=== PATIENT | male | born 1945 | race Caucasian/White ===

== ENCOUNTER 2017-07-15 16:51 | Inpatient (IN) | payer MEDICARE, OTHER ==
[~2017-07-15 16:51] MED LIST: Iopamidol 370 76% 100 ML VIAL ONE
--- NOTE | 2017-07-15 17:35 | RAD ---
1 VIEW CHEST: Date: 07/15/17 HISTORY: Dyspnea. COMPARISON: None. FINDINGS: Portable upright chest demonstrates cardiomegaly. Pulmonary vessels are prominent. Bibasilar pleural and parenchymal changes are noted. No pneumothorax. IMPRESSION: Congestive heart failure. POS: [facility]
[2017-07-15 17:39] LABS: #Basophils 0.2 thou/uL (0.0-0.2); #Eosinphils 0.3 thou/uL (0.0-0.7); #Lymphocytes 1.2 thou/uL (1.20-3.40); #Monocytes 0.9 thou/uL (0.11-0.59); #Neutrophils 5.5 thou/uL (1.40-6.50); %Basophils 1.9 % (0.0-1.0); %Eosinophils 3.6 % (0.0-10.0); %Lymphocytes 14.7 % (21.0-51.0); %Monocytes 11.3 % (0.0-10.0); Hematocrit 40.7 % (42.0-52.0); Mean Platelet Volume 6.4 fL (7.4-10.4); Red Blood Cell (RBC) Count 4.25 mill/uL (4.70-6.10); White Blood Cell (WBC) Count 8.1 thou/uL (4.8-10.8)
[2017-07-15 17:48] LABS: PTT 40.5 SEC (22.9-36.1)
[2017-07-15 17:58] LABS: ALT (SGPT) 17 U/L (8-55); AST (SGOT) 25 U/L (5-34); Alkaline Phosphatase 138 U/L (40-150); Anion Gap 16 mmol/L (10-20); BUN (Urea Nitrogen) 23 mg/dL (8.4-25.7); Bilirubin, Total 0.9 mg/dL (0.2-1.2); CK (CPK) 59 U/L (30-200); Calc. Creatinine Clearance 0 mL/min (70-130); Calcium 9.5 mg/dL (7.8-10.44); Carbon Dioxide 28 mmol/L (23-31); Chloride 91 mmol/L (98-107); Estimated GFR-MDRD 78; Globulin 3.1 g/dL (2.4-3.5); Lipase 37 U/L (8-78); Protein, Total 6.8 g/dL (5.8-8.1)
[2017-07-15 17:59] LABS: Troponin I 0.011 ng/mL (< 0.028)
[2017-07-15] MEDS ORDERED: Furosemide 40 MG/4 ML VIAL ONE (18:21)
[2017-07-15 18:46] LABS: Lactic Acid - Sepsis 0.7 mmol/L (0.5-2.2)
[2017-07-15] MEDS ORDERED: cefTRIAXone\\ROCEPHIN 2 GM VIAL ONE (19:19)
[2017-07-15] MEDS ORDERED: Sodium Chloride 0.9% 100 ML ONE (19:20)
[2017-07-15] MEDS ORDERED: Azithromycin 500 MG VIAL ONE (20:00)
--- NOTE | 2017-07-15 21:15 | CT ---
EXAM: CT ANGIOGRAM OF THE CHEST 07/15/17 HISTORY: Pain. Swelling. Right leg pain and swelling. Shortness of breath. COMPARISON: None. TECHNIQUE: CT angiogram of the chest is performed in the axial plane. Bilateral oblique and coronal three dimen sional reformatted images are submitted for interpretation. FINDINGS: There are mildly enlarged mediastinal lymph nodes. Cloth Beamer enlarged mediastinal lymph node in the right paratracheal region measures 1.4 x 1.4 cm. Additional enlarged prevascular lymph node robyn suring 1.4 x 0.9 cm is noted. Heart size is within the upper limits of normal. Heart is enlarged. No significant pericardial effusion. There is a moderate right and a small left pleural effusion. Ther e is focal consolidation with air bronchograms in the right upper lobe. Additional linear and ground glass opacities in the right upper lobe are present. Minimal linear opacities in the middle lobe. A telectatic changes in the right lower lobe are noted. Additional atelectatic changes in the left low er lobe are present. Trachea and central bronchi are patent. No evidence of pneumothorax. Adequate contrast opacification of the pulmonary arterial system to the level of the segmental arteries. No filling defect to suggest thromboembolism. The visualized aorta has a normal caliber. Visualized upper solid organs are unremarkable. There is irregularity involving the distal thoracic spine, incompletely evaluated. Correlation made with the lateral financial aid advisor tomograph suggests possible compression fracture, age indeterminate. Dedicate d thoracic spine radiograph can be performed. There are multiple old right rib fractures. IMPRESSION: 1. No evidence of pulmonary artery embolism to the level of the segmental arteries. 2. Lung parenchymal changes as detailed above. 3. Nonspecific mediastinal lymphadenopathy. 4. Right greater than left pleural effusions. 5. Old right rib fractures. 6. Indeterminate fracture involving the distal thoracic spine, incompletely evaluated. POS: [facility]
--- NOTE | 2017-07-15 21:37 | PDOC.EVN ---
Event Note - Event Note Event Note: [id number] h&p dictated 1. Hyperkalemia 2. Cellulitis 3. Acute CHF 4. H/O seizures 5. chronic anticoagulation plan; see orders
--- NOTE | 2017-07-15 21:58 | ULT ---
BILATERAL LOWER EXTREMITY VENOUS ULTRASOUND WITH DOPPLER: 07/15/17 HISTORY: Dyspnea. COMPARISON: None. TECHNIQUE: Garcia scale, color flow, doppler imaging with spectral waveform analysis performed in the left and ri ght lower extremity venous system. FINDINGS: Bilaterally, there is compressibility, presence of flow and augmentation in the common femoral vein, femoral vein, and popliteal veins. There is flow in bilateral greater saphenous veins, profunda vei ns and posterior tibial veins. There is right lower extremity and to a lesser extent left lower extremity edema. IMPRESSION: 1. No evidence of thrombus in the left or right lower extremity deep venous system. 2. Bilateral lower extremity edema. POS: [facility]
[2017-07-15] MEDS ORDERED: levETIRAcetam 500 MG TAB PO SCH (23:00)
[2017-07-15 23:22] LABS: Troponin I 0.021 ng/mL (< 0.028)
--- NOTE | 2017-07-16 01:53 | HP ---
DATE OF ADMISSION: 07/15/2017 CHIEF COMPLAINT: Right leg swelling and erythema. HISTORY OF PRESENT ILLNESS: The patient is a 71-year-old male with past medical history of atrial f ibrillation, seizures, chronic venous stasis; initially came to the outside hospital for right lower extremity swelling and erythema. Patient has chronic bilateral lower extremity swelling, but more pronounced on the right lower extremity now, associated with the erythema also and pain. Patient's swelling persisted. Denies any fever, denies any chills. The pain is a sharp kind of pain to burni ng kind of pain mainly in the right leg. Denies any cough, denies sputum production. Denies any di zziness, denies any palpations. Symptoms persisted, so he went to the ER. In the outside ER, katelynn ebnton was suspected of having acute CHF exacerbations. Patient was transferred here for further evalua tion. The patient complains of some dyspnea. Dyspnea is present for the past several years. Denie s any worsening dyspnea. Complains of some dry cough. Denies any diarrhea. PAST MEDICAL HISTORY: As per HPI. PAST SURGICAL HISTORY: Tonsillectomy, vein ablation, bilateral ankle surgery. SOCIAL HISTORY: Denies smoking. Occasional alcohol. Denies any drugs. FAMILY HISTORY: Positive for heart problems. REVIEW OF SYSTEMS: Constitutional: Denies any fever, denies any chills. Eyes: Denies any vision problems. Ears: Denies any hearing loss. Neck: Denies any neck pain. Cardiovascular System: De nies any chest pain, denies palpitations. Respiratory System: Positive for dyspnea. Cranial Nervo us System: Denies syncope, denies lightheadedness. Gastrointestinal: Denies abdominal pain, denie s any nausea, vomiting. Musculoskeletal: Bilateral lower extremity swelling, more pronounced on th e right leg. Integumentary: Positive for right leg erythema. Psychiatric: Denies depression or a nxiety. All other review of systems are reviewed and are negative. PHYSICAL EXAMINATION: CONSTITUTIONAL/VITAL SIGNS: At the time of H\T\P performed, afebrile, blood pressure is stable, res piratory rate is 18 and pulse ox 95%. GENERAL: The patient appears comfortable. HEENT: Anterior nares patent. Hearing is normal. Teeth intact. Tongue is moist. NECK: Supple. No JVD. CARDIOVASCULAR: S1 and S2 present. Regular rate and rhythm. No murmurs, no rubs, no gallops. RESPIRATORY System: Diminished breath sounds present. Occasional crackles. No wheezing, no rhonch i. MUSCULOSKELETAL: Bilateral lower extremity edema present. Chronic skin changes present. Right ank le decreased range of motion. INTEGUMENTARY: Right lower extremity positive for erythema, warm to touch, chronic stasis seen. Le ft leg positive for dressing. PSYCHIATRIC: Mood is appropriate at this time. CRANIAL NERVOUS SYSTEM: Awake and follows commands. Speech is intact. LABORATORY DATA: At the time of H\T\P performed, white count 8.1, hemoglobin 13.8, platelet count i s 154. PT 17, INR 1.4. White count showed sodium of 129, potassium 5.7, chloride 91, CO2 of 28, BU N 23, creatinine 0.95, BNP 666, troponin 0.011. ASSESSMENT AND PLAN: The patient is a 71-year-old male. 1. Right lower extremity cellulitis. Plan to start patient on IV clindamycin and Levaquin. We vi l monitor the patient closely. We will consult Wound Care to evaluate the patient. 2. Hyperkalemia. Monitor and treat potassium medically. Repeat BMP in a.m. 3. History of atrial fibrillation. Continue home medications. We will monitor heart rate closely. We will place patient on telemetry. 4. Acute congestive heart failure exacerbation, might be some component of chronic with some diasto lic heart failure. We will go ahead and check 2D echo. We will consult Cardiology to evaluate the patient. We will start patient on IV diuretics also. We will monitor serial cardiac enzymes. 5. History of chronic anticoagulation. Continue Xarelto. Ultrasound was pending at this time. We will wait for report to rule out any deep venous thrombosis in the lower extremities. 6. History of seizures. Continue Keppra. Case was discussed in detail with the patient and patient's also.
[2017-07-16 05:41] LABS: #Eosinphils 0.3 thou/uL (0.0-0.7); #Lymphocytes 1.2 thou/uL (1.20-3.40); #Monocytes 0.9 thou/uL (0.11-0.59); #Neutrophils 4.1 thou/uL (1.40-6.50); %Basophils 0.6 % (0.0-1.0); %Eosinophils 5.3 % (0.0-10.0); %Lymphocytes 18.3 % (21.0-51.0); %Monocytes 13.5 % (0.0-10.0); Hematocrit 41.8 % (42.0-52.0); Mean Platelet Volume 7.2 fL (7.4-10.4); Red Blood Cell (RBC) Count 4.01 mill/uL (4.70-6.10); White Blood Cell (WBC) Count 6.5 thou/uL (4.8-10.8)
[2017-07-16 05:50] LABS: Anion Gap 12 mmol/L (10-20); BUN (Urea Nitrogen) 23 mg/dL (8.4-25.7); Calc. Creatinine Clearance 100 mL/min (70-130); Calcium 8.9 mg/dL (7.8-10.44); Carbon Dioxide 25 mmol/L (23-31); Chloride 95 mmol/L (98-107); Estimated GFR-MDRD 74
[2017-07-16] MEDS ORDERED: Clindamycin/D5W 600 MG in Premix Bag 1 BAG IVPB SCH (06:00)
[2017-07-16] MEDS ORDERED: Furosemide 40 MG/4 ML VIAL SLOW IVP SCH (06:00)
[2017-07-16 06:10] LABS: Troponin I 0.021 ng/mL (< 0.028)
[2017-07-16] MEDS ORDERED: Spironolactone 25 MG TAB PO SCH (08:00)
[2017-07-16] MEDS ORDERED: Hydrochlorothiazide 25 MG TAB PO SCH (09:00)
[2017-07-16] MEDS ORDERED: Aspirin 81 mg Enteric Coated Tablet PO SCH (09:00)
[2017-07-16] MEDS: Allopurinol 300 MG TAB PO SCH (09:51)
[2017-07-16] MEDS: levETIRAcetam 500 MG TAB PO SCH ×2 (09:52→21:50)
[2017-07-16] MEDS: Folic Acid 1 MG TAB PO SCH ×2 (09:52→21:51)
[2017-07-16] MEDS: Atorvastatin Calcium 10 MG TAB PO SCH (09:54)
[2017-07-16] MEDS ORDERED: Ondansetron HCl/PF 4 MG/2 ML Vial IVP PRN (12:48)
[2017-07-16] MEDS ORDERED: Senokot 8.6 MG TAB PO PRN (12:48)
[2017-07-16] MEDS ORDERED: Acetaminophen 325 MG TAB PO PRN (12:48)
[2017-07-16] MEDS ORDERED: Ondansetron ODT 4 MG TAB PO PRN (12:48)
[2017-07-16] MEDS ORDERED: Nitroglycerin 0.4 MG TAB (25 Tab Bottle) PO PRN (12:48)
[2017-07-16] MEDS ORDERED: Calcium Carbonate 500 MG ChewTAB PO PRN (12:48)
[2017-07-16] MEDS ORDERED: [UNRECOGNIZED DRUG - REMARK] IVPB PRN (12:51)
[2017-07-16] MEDS ORDERED: Polyethylene Glycol 3350 17 GM Packet PO PRN (12:51)
[2017-07-16] MEDS ORDERED: Diabetic Tussin 200 MG/10 ML UDCUP PO PRN (12:51)
[2017-07-16] MEDS ORDERED: Eucerin (Mineral Oil/Petrolatum,White) 30 gm Jar TOP PRN (12:51)
[2017-07-16] MEDS ORDERED: Vancomycin HCl 1 GM in Premix Bag 1 BAG IVPB SCH (13:00)
[2017-07-16] MEDS ORDERED: Furosemide 20 MG/2 ML VIAL SLOW IVP SCH (13:00)
--- NOTE | 2017-07-16 13:05 | PRG ---
DATE OF SERVICE: 07/16/2017 PRIMARY CARE PHYSICIAN: Dr. Mosley. SUMMARY: A 71-year-old male with chronic venous stasis, hypertension, and chronic atrial fibrillation on anticoagulation who presented to the hospital last night from the Urgent Care with bilateral lower extremity swelling. His workup was consistent with cellulitis with congestive heart failure and pneumonia. He was hypoxic with 84% on room air. SUBJECTIVE: His symptoms have improved. He was seen by Wound Care today. He is tolerating current antibiotics. He denies any chest pain, palpitations or syncope. REVIEW OF SYSTEMS: No nausea, vomiting, diarrhea. No focal neurologic deficit. No cough or hemoptysis. IMAGING: Telemetry monitoring by my review showed atrial fibrillation with slow ventricular rate. CURRENT MEDICATIONS: Reviewed. HOME MEDICATIONS: Reviewed PHYSICAL EXAMINATION: VITAL SIGNS: Temperature 98.9, pulse rate of 55, respiration 22, O2 saturation 89% on 2 liters, blood pressure of 142/65. GENERAL: A 71-year-old male in no significant respiratory distress. LUNGS: Showed bibasilar crackles with scattered rhonchi. Lungs were symmetrical. No significant wheezing noted. HEART: S1, S2 present. Irregularly irregular. A 2/6 systolic murmur over the mitral area. No rubs or gallops. ABDOMEN: Soft, nontender, bowel sounds present, no rebound or guarding. No costovertebral angle tenderness. EXTREMITIES: Right lower extremity more swollen than the left. Marco wraps were noted. NEUROLOGIC: Grossly nonfocal, moves all four extremities, normal tone and power. PSYCHIATRIC: Alert, awake, oriented x3, normal affect. LABORATORY FINDINGS AND IMAGIN. Potassium on admission was 5.7, today is 5.2, sodium is 127 from 129. BNP is 666. 2. Hemoglobin 13.1 with normal platelet count. 3. Blood cultures have been negative. 4. CT angiogram of the chest by my review was negative for pulmonary embolism. There was nonspecific mediastinal lymphadenopathy with bilateral pleural effusion and suspected right upper lobe pneumonia. 5. Bilateral lower extremity Doppler was negative for deep venous thrombosis. 6. Chest x-ray by my review showed congestive heart failure findings. 7. EKG by my review showed atrial fibrillation with slow ventricular response. IMPRESSION: 1. Acute hypoxic respiratory failure secondary to congestive heart failure/ pneumonia. 2. Acute on chronic congestive heart failure, suspected diastolic. 3. Community-acquired pneumonia, suspected pneumococcal. 4. Bilateral lower extremity cellulitis, right more than left. 5. Hyperkalemia. 6. History of seizure disorder. 7. Chronic atrial fibrillation. The patient is currently in slow ventricular response. 8. Chronic bilateral lower extremity lymphedema. 9. Chronic venous insufficiency in bilateral lower extremities. 10. Hypertension. 11. Cardiac catheterization last year by Dr. Diaz. Report unavailable. 12. Hyperlipidemia. 13. Chronic kidney disease stage 2. 14. Obesity with a body mass index of 30.3. 15. Macrocytic anemia. 16. Chronic anticoagulation. PLAN: The patient will be monitored on the telemetry unit. Cardiology has been consulted. Echocardiogram will be done. We will add fluid restriction. Continue diuretics. We will discontinue clindamycin. Continue Levaquin with ceftriaxone. Repeat labs in a.m. Wound care is following. We will elevate bilateral lower extremity. Plan of care was discussed with the patient and the family at the bedside. They stated understanding. MTDD
[2017-07-16] MEDS: Furosemide 40 MG/4 ML VIAL SLOW IVP SCH (14:06)
[2017-07-16] MEDS: Vancomycin HCl 1.5 GM in Sodium Chloride 0.9% 250 ML 300 ML IVPB SCH (14:15)
[2017-07-16] MEDS: Rivaroxaban 10 MG TAB PO SCH (17:33)
--- NOTE | 2017-07-16 21:45 | CON ---
DATE OF CONSULTATION: 07/16/2017 REASON FOR CONSULTATION: Congestive heart failure. REFERRING PHYSICIAN: Kai Dowell MD HISTORY OF PRESENT ILLNESS: Mr. Dotson is a 71-year-old gentleman who presented with right leg a symmetric swelling and erythema. He has chronic edema bilaterally, but his edema became more asymme tric and isolated to the right lower extremity with erythema and warmth suspicious for cellulitis. He went to the ER for evaluation and workup showed evidence of volume overload. He was transferred here for further treatment. He has a history of atrial fibrillation and is chronically anticoagulated on Xarelto. He is followe d by Dr. Diaz with [facility]. PAST MEDICAL HISTORY: 1. Atrial fibrillation. 2. Chronic venous stasis. 3. Seizure disorder. 4. Hypertension. PAST SURGICAL HISTORY: 1. Tonsillectomy. 2. Vein ablation. 3. Bilateral ankle surgery. ALLERGIES: No known drug allergies. SOCIAL HISTORY: He denies tobacco use, ethanol abuse, illicit or recreational drug use. FAMILY HISTORY: Negative with respect to premature atherosclerosis. CURRENT MEDICATIONS: At home include: 1. Allopurinol 300 mg daily. 2. Amlodipine 2.5 mg daily. 3. Vitamin C 1000 mg daily. 4. Lipitor 10 mg daily. 5. Vitamin D daily. 6. Folic acid 1 mg b.i.d. 7. Hydrochlorothiazide 12.5 mg daily. 8. Xarelto 20 mg daily. 9. Aldactone 50 mg daily. 10. Levetiracetam 750 mg b.i.d. REVIEW OF SYSTEMS: As per the history of present illness. The remainder of 12-system review is neg ative. PHYSICAL EXAMINATION: VITAL SIGNS: Blood pressure 142/65, pulse 55 and regular, respiratory rate 22 and nonlabored, tempe rature 98.9, oxygen saturation 90% on 3 liters per minute per nasal cannula. GENERAL: This is a well-developed, overweight, 71-year-old gentleman, in no acute distres s. He is alert and oriented x4, answers questions appropriately. HEENT: Head is atraumatic, normocephalic. Pupils are equally round and reactive. Sclerae and conj unctivae are clear. There are no oral lesions. NECK: Supple. No JVD, thyromegaly, or carotid bruits. CHEST: Symmetrical inspiration and expiration HEART: Regular in rate and rhythm with a soft systolic murmur at the right upper sternal border wit hout radiation. PMI is nondisplaced, not enlarged. LUNGS: Diminished breath sounds noted in bases bilaterally. ABDOMEN: Soft, nontender, nondistended without mass or organomegaly. Bowel sounds are present in a ll four quadrants. No flank bruits auscultated. EXTREMITIES: 2+ pulses noted bilaterally. Upper and lower extremity strength is 5/5 bilaterally. T here is no clubbing or cyanosis. There is diffuse edema bilaterally. DATABASE: EKG revealed sinus rhythm with nonspecific ST changes. LABORATORY DATA: CBC reveals a white count of 6, H\T\H of 13 and 41, platelet count 171,000. Diffe rential white blood cells normal, red cell indices macrocytic with MCV of 104. Coagulation studies: PT is 17, INR 1.4, aPTT of 40.5. Chemistries: Sodium is 127, potassium 5.2, chloride 95, bicarbo isadora 25, BUN and creatinine are 23 and 0.9. GFR is estimated at 73. LFTs are within normal limits. Cardiac enzymes are normal. BNP elevated at 666. ASSESSMENT: 1. Acute on chronic diastolic congestive heart failure. 2. Hyponatremia secondary to acute on chronic diastolic congestive heart failure. 3. Chronic kidney disease, stage 2. 4. Paroxysmal atrial fibrillation, currently in sinus rhythm, on Xarelto. 5. Cellulitis, right lower extremity. RECOMMENDATIONS: 1. From a cardiac standpoint, he is stable. We will proceed with gentle diuresis, monitoring his e lectrolyte status and renal function over the course of time. 2. Agree with antibiotics for his presumed cellulitis due to chronic worsening edema. 3. An echo has been ordered and will be reviewed. I will follow along with you and appreciate the opportunity to participate in his care.
[2017-07-16] MEDS: Docusate 100 MG CAP PO SCH (21:50)
[2017-07-16] MEDS: Famotidine 20 MG TAB PO SCH (21:51)
[2017-07-17] MEDS: Vancomycin HCl 1.5 GM in Sodium Chloride 0.9% 250 ML 300 ML IVPB SCH (02:01)
[2017-07-17 05:33] LABS: #Basophils 0.1 thou/uL (0.0-0.2); #Eosinphils 0.5 thou/uL (0.0-0.7); #Lymphocytes 1.2 thou/uL (1.20-3.40); #Monocytes 0.8 thou/uL (0.11-0.59); #Neutrophils 4.1 thou/uL (1.40-6.50); %Basophils 1.2 % (0.0-1.0); %Eosinophils 7.8 % (0.0-10.0); %Lymphocytes 18.3 % (21.0-51.0); %Monocytes 11.8 % (0.0-10.0); Hematocrit 41.1 % (42.0-52.0); Mean Platelet Volume 6.2 fL (7.4-10.4); Red Blood Cell (RBC) Count 3.95 mill/uL (4.70-6.10); White Blood Cell (WBC) Count 6.7 thou/uL (4.8-10.8)
[2017-07-17] MEDS: Furosemide 40 MG/4 ML VIAL SLOW IVP SCH ×3 (05:39→17:28)
[2017-07-17 06:03] LABS: ALT (SGPT) 11 U/L (8-55); AST (SGOT) 17 U/L (5-34); Alkaline Phosphatase 109 U/L (40-150); Anion Gap 12 mmol/L (10-20); BUN (Urea Nitrogen) 24 mg/dL (8.4-25.7); Bilirubin, Total 0.7 mg/dL (0.2-1.2); Calc. Creatinine Clearance 85 mL/min (70-130); Calcium 8.9 mg/dL (7.8-10.44); Carbon Dioxide 29 mmol/L (23-31); Chloride 94 mmol/L (98-107); Estimated GFR-MDRD 61; Globulin 2.6 g/dL (2.4-3.5); Magnesium 1.2 mg/dL (1.6-2.6); Phosphorus 4.6 mg/dL (2.3-4.7); Protein, Total 5.7 g/dL (5.8-8.1); Uric Acid 4.2 mg/dL (3.5-7.2)
[2017-07-17] MEDS ORDERED: Magnesium Sulfate 4 GM, Admixture Fee 1 EACH in Sodium Chloride 0.9% 250 ML 250 ML IVPB SCH (06:30)
[2017-07-17] MEDS: levETIRAcetam 500 MG TAB PO SCH ×2 (09:59→21:53)
[2017-07-17] MEDS: Docusate 100 MG CAP PO SCH ×2 (10:00→21:53)
[2017-07-17] MEDS: Cyanocobalamin (Vitamin B-12) 1,000 MCG TAB PO SCH (10:00)
[2017-07-17] MEDS: Famotidine 20 MG TAB PO SCH ×2 (10:00→21:53)
[2017-07-17] MEDS: Multivit, Therapeutic 1 TAB PO SCH (10:00)
[2017-07-17] MEDS: Allopurinol 300 MG TAB PO SCH (10:01)
[2017-07-17] MEDS: Atorvastatin Calcium 10 MG TAB PO SCH (10:01)
[2017-07-17] MEDS: Folic Acid 1 MG TAB PO SCH ×2 (10:02→21:53)
[2017-07-17] MEDS ORDERED: Losartan Potassium 25 MG TAB PO SCH ×2 (10:30→21:00)
--- NOTE | 2017-07-17 11:02 | PDOC.PN ---
- Subjective Encounter Start Date: 07/17/17 Encounter Start Time: 10:30 Patient seen and examined. No new complaints. No overnight events. SOB improving - Objective Resuscitation Status: Resuscitation Status FULL:Full Resuscitation MAR Reviewed: Yes Vital Signs & Weight: Vital Signs (12 hours) Temp Pulse Resp BP BP BP Pulse Ox 07/17/17 08:00 97.6 F 51 L 22 H 174/81 H 182/81 H 175/79 H 92 L 07/17/17 04:48 92 L 07/17/17 04:05 98.8 F 49 L 18 160/71 H 92 L 07/16/17 23:35 52 L 18 127/55 L 92 L Weight Admit Weight 231 lb Weight 233 lb 1.6 oz I&O: 07/16/17 07/17/17 07/18/17 06:59 06:59 06:59 Intake Total 760 1390 Output Total 700 1800 Balance 60 -410 Result Diagrams: 07/17/17 05:23 07/17/17 05:23 EKG Reviewed by me: Yes (Tele Afib ) Phys Exam - Physical Examination Constitutional: NAD (on 4 lit O2) Respiratory: no wheezing, no rhonchi Bibasilar rales Cardiovascular: RRR, no rub Gastrointestinal: soft, non-tender, positive bowel sounds Musculoskeletal: edema present B/L LE dressing + Neurological: non-focal, moves all 4 limbs Psychiatric: A&O x 3 Dx/Plan - Plan IMPRESSION: 1. Acute hypoxic respiratory failure secondary to congestive heart failure/ pneumonia. improving 2. Acute on chronic diastolic heart failure. 3. Community-acquired pneumonia, suspected pneumococcal. 4. Bilateral lower extremity cellulitis, right more than left. 5. Hyperkalemia. resolved 6. History of seizure disorder. on Keppra 7. Chronic atrial fibrillation. 8. Chronic bilateral lower extremity lymphedema. 9. Chronic venous insufficiency in bilateral lower extremities. 10. Hypertension. uncontrolled 11. Cardiac catheterization last year by Dr. Diaz per patient report. 12. Hyperlipidemia. 13. Chronic kidney disease stage 2. 14. Obesity with a body mass index of 30.3. 15. Macrocytic anemia. 16. Chronic anticoagulation. 17. Gout. 18 Hypomagnessemia PLAN: * Change Atbx to Omnicef with Doxycycline * Cont diuretics * Replace Magnessium * AM labs * Cardiology following * Add Losartan and Hydralazine due to elevated BP * No betablockers due to bradycardia. Review of Systems - Review of Systems Constitutional: negative: Fever, Chills, Sweats, Weakness, Malaise, Other Respiratory: SOB with Excertion Cardiovascular: Edema. negative: Chest Pain, Palpitations, Orthopnea, Paroxysmal Noc. Dyspnea, Light Headedness, Other Gastrointestinal: negative: Nausea, Vomiting, Abdominal Pain, Diarrhea, Constipation, Melena, Hematochezia, Other - Medications/Allergies Allergies/Adverse Reactions: Allergies Allergy/AdvReac Type Severity Reaction Status Date / Time No Known Drug Allergies Allergy Verified 07/15/17 22:23 Medications: Current Medications Acetaminophen (Tylenol) 650 mg PO Q4H PRN PRN Reason: Headache/Fever or Pain Albuterol/Ipratropium (Duoneb) 3 ml NEB Q4H PRN PRN Reason: SOB &/or Wheezing Allopurinol (Zyloprim) 300 mg PO DAILY [facility] Last Admin: 07/17/17 10:01 Dose: 300 mg Atorvastatin Calcium (Lipitor) 10 mg PO DAILY [facility] Last Admin: 07/17/17 10:01 Dose: 10 mg Calcium Carbonate (Tums) 1,000 mg PO Q4H PRN PRN Reason: Heartburn or Indigestion Cefdinir (Omnicef) 300 mg PO BID [facility] Cyanocobalamin (Vitamin B-12) 1,000 mcg PO DAILY [facility] Last Admin: 07/17/17 10:00 Dose: 1,000 mcg Docusate Sodium (Colace) 100 mg PO BID [facility] Last Admin: 07/17/17 10:00 Dose: 100 mg Doxycycline Hyclate (Vibramycin) 100 mg PO BID [facility] Famotidine (Pepcid) 20 mg PO BID [facility] Last Admin: 07/17/17 10:00 Dose: 20 mg Folic Acid (Folvite) 1 mg PO BID [facility] Last Admin: 07/17/17 10:02 Dose: 1 mg Furosemide (Lasix) 40 mg SLOW IVP 0600,1400 [facility] Last Admin: 07/17/17 05:39 Dose: 40 mg Guaifenesin (Robitussin Sf) 200 mg PO Q4H PRN PRN Reason: Cough Hydralazine HCl (Apresoline) 10 mg SLOW IVP Q4H PRN PRN Reason: SBP Greater Than 180 Hydralazine HCl (Apresoline) 25 mg PO BID [facility] Hydralazine HCl (Apresoline) 25 mg PO 1030 [facility] Stop: 07/17/17 12:00 Levetiracetam (Keppra) 750 mg PO BID [facility] Last Admin: 07/17/17 09:59 Dose: 750 mg Losartan Potassium (Cozaar) 25 mg PO BID [facility] Losartan Potassium (Cozaar) 25 mg PO 1030 [facility] Stop: 07/17/17 12:00 Mineral Oil/White Petrolatum (Eucerin Cream) 0 gm TOP BIDPRN PRN PRN Reason: Dry Skin Miscellaneous Medication (Pharmacy To Dose) 1 each IVPB .DAILY PRN PRN Reason: LABS Multivitamins (Theragran) 1 tab PO DAILY [facility] Last Admin: 07/17/17 10:00 Dose: 1 tab Nitroglycerin (Nitrostat) 0.4 mg PO Q5MIN PRN PRN Reason: Chest Pain Ondansetron HCl (Zofran Odt) 4 mg PO Q6H PRN PRN Reason: Nausea/Vomiting Ondansetron HCl (Zofran) 4 mg IVP Q6H PRN PRN Reason: Nausea/Vomiting Polyethylene Glycol (Miralax) 17 gm PO DAILY PRN PRN Reason: Constipation Rivaroxaban (Xarelto) 20 mg PO 1700 [facility] Last Admin: 07/16/17 17:33 Dose: 20 mg Senna (Senokot) 2 tab PO HSPRN PRN PRN Reason: Constipation Sodium Chloride (Flush - Normal Saline) 10 ml IVF PRN PRN PRN Reason: Saline Flush Last Admin: 07/17/17 09:58 Dose: 10 ml Thiamine HCl (Thiamine) 100 mg PO DAILY [facility] Last Admin: 07/17/17 10:02 Dose: 100 mg
--- NOTE | 2017-07-17 12:17 | PDOC.CTH ---
Cardiology Progress Note - Subjective No new issues overnight. Breathing better today. Diuresing adequately. ROS otherwise negative. - Objective Vital Signs Temp Pulse Resp BP BP BP BP 07/17/17 11:51 48 L 162/73 H 07/17/17 08:00 97.6 F 51 L 22 H 174/81 H 182/81 H 175/79 H 07/17/17 04:48 07/17/17 04:05 98.8 F 49 L 18 160/71 H Pulse Ox 07/17/17 11:51 07/17/17 08:00 92 L 07/17/17 04:48 92 L 07/17/17 04:05 92 L Admit Weight 231 lb Weight 233 lb 1.6 oz 07/16/17 07/17/17 07/18/17 06:59 06:59 06:59 Intake Total 760 1390 Output Total 700 1800 Balance 60 -410 - Physical Examination General/Neuro: alert & oriented x3, NAD Neck: carotid US brisk, no JVD present Lungs: CTA, unlabored respirations Heart: PMI normal, RRR Abdomen: no HSM, NT/ND, soft Extremities: + edema B Other PE findings: Neuro: no focal motor defs - Telemetry Telemetry Rhythm: sinus rhythm - Labs Result Diagrams: 07/17/17 05:23 07/17/17 05:23 Troponin/CKMB CK-MB (CK-2) 4.1 ng/mL (0-6.6) 07/15/17 17:19 Troponin I 0.021 ng/mL (< 0.028) 07/16/17 05:15 - Assessment/Plan 1. CAP: improved. Continue antibiotics. 2. CHF: acute/chronic diastolic: stable with diuresis. Monitor lytes/renal function. Stable currently. 3. HTN: controlled. Continue medical management. 4. CKD, II: stable.
[2017-07-17] MEDS: Rivaroxaban 10 MG TAB PO SCH (17:28)
[2017-07-17] MEDS: Cefdinir 300 MG CAP PO SCH (21:53)
[2017-07-17] MEDS: Doxycycline 100 MG CAP PO SCH (21:53)
[2017-07-18 06:31] LABS: ALT (SGPT) 13 U/L (8-55); AST (SGOT) 21 U/L (5-34); Alkaline Phosphatase 110 U/L (40-150); Anion Gap 15 mmol/L (10-20); BUN (Urea Nitrogen) 29 mg/dL (8.4-25.7); Bilirubin, Total 0.6 mg/dL (0.2-1.2); Calc. Creatinine Clearance 75 mL/min (70-130); Calcium 9.1 mg/dL (7.8-10.44); Carbon Dioxide 28 mmol/L (23-31); Chloride 93 mmol/L (98-107); Estimated GFR-MDRD 52; Globulin 2.8 g/dL (2.4-3.5); Magnesium 1.9 mg/dL (1.6-2.6); Phosphorus 5.5 mg/dL (2.3-4.7); Protein, Total 5.9 g/dL (5.8-8.1)
[2017-07-18 06:42] LABS: Hematocrit 41.7 % (42.0-52.0); Macrocytosis SLIGHT = 6-15 cells (100X) (0-5/hpf); Mean Platelet Volume 6.4 fL (7.4-10.4); Neutrophil 61 % (42-75); Red Blood Cell (RBC) Count 3.96 mill/uL (4.70-6.10); White Blood Cell (WBC) Count 7.9 thou/uL (4.8-10.8)
[2017-07-18] MEDS: Furosemide 40 MG/4 ML VIAL SLOW IVP SCH (06:58)
[2017-07-18] MEDS: Cefdinir 300 MG CAP PO SCH ×2 (08:51→21:02)
[2017-07-18] MEDS: Atorvastatin Calcium 10 MG TAB PO SCH (08:51)
[2017-07-18] MEDS: Cyanocobalamin (Vitamin B-12) 1,000 MCG TAB PO SCH (08:51)
[2017-07-18] MEDS: Folic Acid 1 MG TAB PO SCH ×2 (08:52→21:02)
[2017-07-18] MEDS: Docusate 100 MG CAP PO SCH ×2 (08:52→21:02)
[2017-07-18] MEDS: Doxycycline 100 MG CAP PO SCH ×2 (08:52→21:02)
[2017-07-18] MEDS: Famotidine 20 MG TAB PO SCH ×2 (08:52→21:02)
[2017-07-18] MEDS: Multivit, Therapeutic 1 TAB PO SCH (08:52)
[2017-07-18] MEDS: levETIRAcetam 500 MG TAB PO SCH ×2 (08:52→21:02)
[2017-07-18] MEDS: Allopurinol 100 MG TAB PO SCH (08:57)
[2017-07-18] MEDS ORDERED: Losartan Potassium 25 MG TAB PO SCH (09:00)
[2017-07-18] MEDS: Rivaroxaban 10 MG TAB PO SCH (16:58)
--- NOTE | 2017-07-18 18:23 | PDOC.PN ---
- Subjective Encounter Start Date: 07/18/17 Encounter Start Time: 09:00 Patient seen and examined. No new complaints. No overnight events. SOB improving. - Objective Resuscitation Status: Resuscitation Status FULL:Full Resuscitation MAR Reviewed: Yes Vital Signs & Weight: Vital Signs (12 hours) Temp Pulse Pulse Pulse Resp BP BP 07/18/17 15:09 98.3 F 53 L 18 07/18/17 12:00 99.1 F 56 L 18 07/18/17 10:19 54 L 52 L 163/71 H 187/79 H 07/18/17 08:00 98.8 F 63 20 BP BP Pulse Ox Pulse Ox Pulse Ox 07/18/17 15:09 158/69 H 94 L 07/18/17 12:00 145/67 H 100 07/18/17 10:19 94 L 94 L 07/18/17 08:00 124/84 93 L Weight Admit Weight 231 lb Weight 235 lb 11.2 oz I&O: 07/17/17 07/18/17 07/19/17 06:59 06:59 06:59 Intake Total 1390 1480 Output Total 1800 2325 Balance -410 -845 Result Diagrams: 07/18/17 05:12 07/18/17 05:12 EKG Reviewed by me: Yes (Tele Afib) Phys Exam - Physical Examination Constitutional: NAD Respiratory: no wheezing, no rhonchi bibasilar rales Cardiovascular: no rub, irregular Gastrointestinal: soft, non-tender, positive bowel sounds Musculoskeletal: edema present Neurological: non-focal, moves all 4 limbs Dx/Plan - Plan IMPRESSION: 1. Acute hypoxic respiratory failure secondary to congestive heart failure/ pneumonia. improving 2. Acute on chronic diastolic heart failure. improving 3. Community-acquired pneumonia, suspected pneumococcal. on Atbx 4. Bilateral lower extremity cellulitis, right more than left. wound care following. 5. Chronic anticoagulation. 6. History of seizure disorder. on Keppra 7. Chronic atrial fibrillation. Bradycardic 8. Chronic bilateral lower extremity lymphedema. 9. Chronic venous insufficiency in bilateral lower extremities. 10. Hypertension. uncontrolled 11. Cardiac catheterization last year by Dr. Diaz per patient report. 12. Hyperlipidemia. 13. Chronic kidney disease stage 2. 14. Obesity with a body mass index of 30.3. 15. Macrocytic anemia. 16. Hyperkalemia. resolved 17. Gout. 18 Hypomagnessemia PLAN: * Cont Omnicef & Doxycycline * Change Lasix to PO due to elevated Cr * Cont wound care * AM labs * Cardiology following * Hold Losartan due to elevated Cr * No betablockers due to bradycardia. * CXR in AM - still on 4 lit O2 NC * Add IS Review of Systems - Review of Systems Constitutional: negative: Fever, Chills, Sweats, Weakness, Malaise, Other Respiratory: SOB with Excertion. negative: Cough, Dry, Shortness of Breath, Hemoptysis, Pleuritic Pain, Sputum, Wheezing Cardiovascular: negative: Chest Pain, Palpitations, Orthopnea, Paroxysmal Noc. Dyspnea, Edema, Light Headedness, Other Gastrointestinal: negative: Nausea, Vomiting, Abdominal Pain, Diarrhea, Constipation, Melena, Hematochezia, Other - Medications/Allergies Allergies/Adverse Reactions: Allergies Allergy/AdvReac Type Severity Reaction Status Date / Time No Known Drug Allergies Allergy Verified 07/15/17 22:23 Medications: Current Medications Acetaminophen (Tylenol) 650 mg PO Q4H PRN PRN Reason: Headache/Fever or Pain Albuterol/Ipratropium (Duoneb) 3 ml NEB Q4H PRN PRN Reason: SOB &/or Wheezing Allopurinol (Zyloprim) 100 mg PO DAILY [facility] Last Admin: 07/18/17 08:57 Dose: 100 mg Atorvastatin Calcium (Lipitor) 10 mg PO DAILY [facility] Last Admin: 07/18/17 08:51 Dose: 10 mg Calcium Carbonate (Tums) 1,000 mg PO Q4H PRN PRN Reason: Heartburn or Indigestion Cefdinir (Omnicef) 300 mg PO BID [facility] Last Admin: 07/18/17 08:51 Dose: 300 mg Docusate Sodium (Colace) 100 mg PO BID [facility] Last Admin: 07/18/17 08:52 Dose: 100 mg Doxycycline Hyclate (Vibramycin) 100 mg PO BID [facility] Last Admin: 07/18/17 08:52 Dose: 100 mg Famotidine (Pepcid) 20 mg PO BID [facility] Last Admin: 07/18/17 08:52 Dose: 20 mg Folic Acid (Folvite) 1 mg PO BID [facility] Last Admin: 07/18/17 08:52 Dose: 1 mg Furosemide (Lasix) 40 mg PO DAILY[facility] Guaifenesin (Robitussin Sf) 200 mg PO Q4H PRN PRN Reason: Cough Hydralazine HCl (Apresoline) 10 mg SLOW IVP Q4H PRN PRN Reason: SBP Greater Than 180 Levetiracetam (Keppra) 750 mg PO BID [facility] Last Admin: 07/18/17 08:52 Dose: 750 mg Mineral Oil/White Petrolatum (Eucerin Cream) 0 gm TOP BIDPRN PRN PRN Reason: Dry Skin Miscellaneous Medication (Pharmacy To Dose) 1 each IVPB .DAILY PRN PRN Reason: LABS Multivitamins (Theragran) 1 tab PO DAILY [facility] Last Admin: 07/18/17 08:52 Dose: 1 tab Nitroglycerin (Nitrostat) 0.4 mg PO Q5MIN PRN PRN Reason: Chest Pain Ondansetron HCl (Zofran Odt) 4 mg PO Q6H PRN PRN Reason: Nausea/Vomiting Ondansetron HCl (Zofran) 4 mg IVP Q6H PRN PRN Reason: Nausea/Vomiting Polyethylene Glycol (Miralax) 17 gm PO DAILY PRN PRN Reason: Constipation Rivaroxaban (Xarelto) 20 mg PO 1700 [facility] Last Admin: 07/18/17 16:58 Dose: 20 mg Senna (Senokot) 2 tab PO HSPRN PRN PRN Reason: Constipation Sodium Chloride (Flush - Normal Saline) 10 ml IVF PRN PRN PRN Reason: Saline Flush Last Admin: 07/17/17 17:30 Dose: 10 ml Thiamine HCl (Thiamine) 100 mg PO DAILY [facility] Last Admin: 07/18/17 08:53 Dose: 100 mg
[2017-07-19 06:18] LABS: #Basophils 0.1 thou/uL (0.0-0.2); #Eosinphils 0.5 thou/uL (0.0-0.7); #Lymphocytes 1.1 thou/uL (1.20-3.40); #Monocytes 0.9 thou/uL (0.11-0.59); #Neutrophils 4.9 thou/uL (1.40-6.50); %Basophils 0.9 % (0.0-1.0); %Eosinophils 6.5 % (0.0-10.0); %Lymphocytes 14.6 % (21.0-51.0); %Monocytes 11.9 % (0.0-10.0); Hematocrit 40.3 % (42.0-52.0); Mean Platelet Volume 6.7 fL (7.4-10.4); Red Blood Cell (RBC) Count 3.86 mill/uL (4.70-6.10); White Blood Cell (WBC) Count 7.3 thou/uL (4.8-10.8)
[2017-07-19 06:39] LABS: Anion Gap 14 mmol/L (10-20); BUN (Urea Nitrogen) 35 mg/dL (8.4-25.7); Calc. Creatinine Clearance 72 mL/min (70-130); Calcium 8.9 mg/dL (7.8-10.44); Carbon Dioxide 28 mmol/L (23-31); Chloride 93 mmol/L (98-107); Estimated GFR-MDRD 50; Magnesium 1.6 mg/dL (1.6-2.6)
--- NOTE | 2017-07-19 08:46 | RAD ---
PA AND LATERAL CHEST: Date: 07-19-17 History: Shortness of breath, hypoxia. Comparison: CTA chest 03-14-17. FINDINGS: Pleural and parenchymal changes are seen in at the right lung base again related to moderate sized r ight pleural effusion and atelectasis. There are increased parenchymal opacities seen in the right u pper lobe, also seen on the prior CTA exam. Findings could be related to areas of scarring or inters titial infiltrate secondary to infectious process. There is increased density seen at the left lung base, some of which is related to overlying soft tissue density, but there are areas of subsegmental atelectasis. The heart is enlarged. Pulmonary vasculature is within normal limits. There is osteopenia with remote right sided rib fractures seen and prominent left acromioclavicular joint osteoarthritis. IMPRESSION: 1. Moderate sized right pleural effusion and atelectasis. 2. Interstitial and patchy densities in the region of the right upper lobe anteriorly which may be r elated to either atelectasis or infectious process. 3. Cardiomegaly. 4. Remote right sided rib fractures. POS: NAVYA
[2017-07-19] MEDS: levETIRAcetam 500 MG TAB PO SCH ×2 (08:56→22:22)
[2017-07-19] MEDS: Doxycycline 100 MG CAP PO SCH ×2 (08:57→22:21)
[2017-07-19] MEDS: Famotidine 20 MG TAB PO SCH ×2 (08:57→22:22)
[2017-07-19] MEDS: Folic Acid 1 MG TAB PO SCH ×2 (08:57→22:21)
[2017-07-19] MEDS: Atorvastatin Calcium 10 MG TAB PO SCH (08:58)
[2017-07-19] MEDS: Furosemide 40 MG TAB PO SCH (08:58)
[2017-07-19] MEDS: Allopurinol 100 MG TAB PO SCH (08:58)
[2017-07-19] MEDS: Docusate 100 MG CAP PO SCH ×2 (08:58→22:23)
[2017-07-19] MEDS: Multivit, Therapeutic 1 TAB PO SCH (08:58)
[2017-07-19] MEDS: Cefdinir 300 MG CAP PO SCH ×2 (08:58→22:21)
--- NOTE | 2017-07-19 10:49 | PDOC.CTH ---
Cardiology Progress Note - Subjective Feeling better. Denies recurrent dyspnea, orthopnea. Tolerating meds. ROS otherwise negative. - Objective Vital Signs Temp Pulse Resp BP Pulse Ox 07/19/17 08:20 98.9 F 65 16 190/80 H 92 L 07/19/17 08:00 98.9 F 65 16 92 L 07/19/17 04:33 99.9 F H 71 20 124/61 94 L 07/19/17 03:42 95 Admit Weight 231 lb Weight 235 lb 07/18/17 07/19/17 07/20/17 06:59 06:59 06:59 Intake Total 1480 1010 Output Total 2325 805 Balance -845 205 - Physical Examination General/Neuro: alert & oriented x3, NAD Neck: carotid US brisk, no JVD present Lungs: CTA, unlabored respirations Heart: PMI normal, RRR Abdomen: no HSM, NT/ND, soft Extremities: other: (2+ pulses, minimal edema) Other PE findings: Neuro: no focal motor defs - Telemetry Telemetry Rhythm: sinus rhythm - Labs Result Diagrams: 07/19/17 05:38 07/19/17 05:38 Troponin/CKMB CK-MB (CK-2) 4.1 ng/mL (0-6.6) 07/15/17 17:19 Troponin I 0.021 ng/mL (< 0.028) 07/16/17 05:15 - Assessment/Plan 1. CAP: improved. Continue antibiotics. 2. CHF: acute/chronic diastolic: stable with diuresis. Monitor lytes/renal function. Stable currently. Agree with switching to po lasix and holding ACEI for now due to increased BUN/creat. 3. HTN: controlled. Continue medical management. 4. CKD, II: stable. Monitor due to prerenal azotemia now with diuresis.
--- NOTE | 2017-07-19 11:23 | CON ---
DATE OF CONSULTATION: 07/19/2017 CONSULTING PHYSICIAN: Dr. Richards. REASON FOR CONSULTATION: Pleural effusions. HISTORY OF THE PRESENT ILLNESS: The patient is a 71-year-old male who was hospitalized on 07/15/2017. His presenting complaint was right leg swelling. He had been experiencing some shortness of breath. He did not think that this was any different than usual. At the time of hospitalization, he was found to have severely elevated BNP along with chronic atrial fibrillation and profound lower extremity edema. He was hospitalized with presumptive diagnosis of congestive heart failure and has been on diuretic therapy ever since. For reasons that aren't clear to me, he has also been labeled as having community- acquired pneumonia. I have reviewed his CT scan and I would probably disagree with that assessment. PAST MEDICAL HISTORY: 1. Chronic atrial fibrillation. 2. Chronic venous stasis of lower extremities. PAST SURGICAL HISTORY: Tonsillectomy, he has had leg vein ablation and also had bilateral ankle surgery. SOCIAL HISTORY: Quit smoking many years ago. Does not consume alcohol. Just moved to this area from [facility]. FAMILY MEDICAL HISTORY: Remarkable for coronary disease. REVIEW OF SYSTEMS: Denies any cough, congestion, has had no fever, chills, nausea, vomiting, chest pain, hematemesis, melena, or hematochezia. PHYSICAL EXAMINATION: VITAL SIGNS: Temperature 98.9, pulse 65, respirations 16, O2 sat 92% on 3.5 liters, blood pressure 190/80. He is 6 foot and 1, weighs 235 pounds. HEENT: Pupils react. Sclerae anicteric. Oropharynx clear. NECK: Without adenopathy or JVD. LUNGS: He has dullness to percussion at both bases about [address]. He has crackles at both bases. CARDIAC: S1, S2 irregularly irregular without murmur. ABDOMEN: Soft, obese, nontender, nondistended. EXTREMITIES: He has 1+ edema from knees downward. LABORATORY DATA AND IMAGING: White blood cell count 7.3, hemoglobin 12, hematocrit 40, and platelet count 141. He has had no neutrophilic shift. Sodium 131, potassium 4.4, chloride 93, CO2 28, BUN 35, creatinine 1.4, and glucose 96. BNP at the time of admission was 666, albumin is 3.1. Chest x-ray shows bilateral small effusions. This is confirmed by CT scan. ASSESSMENT: 1. Mr. Dotson presents with anasarca which is likely due to congestive heart failure from diastolic dysfunction. Nothing in his history at this time would suggest these are peripneumonic effusions. Given his low albumin, I think that hypoalbuminemia from nephrotic syndrome would also need to be ruled out. 2. Elevated BUN and creatinine after diuresis. 3. Bilateral pleural effusions. RECOMMENDATIONS: I would not ordinarily recommend tapping, suspect transudative effusions from congestive heart failure. I would recommend continuing to diurese the patient and perhaps checking urinalysis to make sure he does not have a nephrotic syndrome on top of the congestive heart failure. I will reserve thoracentesis to be done only if his effusions do not respond to diuresis. I would recommend this diuresis be intravenous rather than oral. He may need metolazone on top of what he is already getting. His admission weight was noted to be 231 pounds and he is currently 235, so it does not appear that he has had any significant diuresis based on weight change since admission. VIRGINIAD
[2017-07-19] MEDS: Rivaroxaban 10 MG TAB PO SCH (16:53)
[2017-07-19 17:24] LABS: Bilirubin Negative (Negative); Blood, Urine Negative (Negative); Glucose, Urine (Dipstick) Negative (Negative); Ketone, Urine Negative (Negative); Nitrite Negative (Negative); Protein, Urine (Dipstick) 30 mg/dL (Neg-Trace); Urobilinogen 0.2 mg/dL (0.2-1.0)
[2017-07-19 17:27] LABS: Bacteria/HPF None Seen HPF (None Seen); Hyaline Casts/LPF 0-3 HYALINE CAST LPF (0-3 Hyaline); RBC/HPF 0-3 HPF (0-3); Squamous Epithelial None Seen HPF (0-3); WBC/HPF 0-3 HPF (0-3)
--- NOTE | 2017-07-19 18:02 | PDOC.PN ---
- Subjective Encounter Start Date: 07/19/17 Encounter Start Time: 10:00 Patient seen and examined. No new complaints. No overnight events - Objective Resuscitation Status: Resuscitation Status FULL:Full Resuscitation MAR Reviewed: Yes Vital Signs & Weight: Vital Signs (12 hours) Temp Pulse Pulse Pulse Resp BP BP 07/19/17 16:00 98.9 F 54 L 22 H 07/19/17 11:30 99.6 F 48 L 18 07/19/17 09:08 52 L 63 130/79 142/68 H 07/19/17 08:20 98.9 F 65 16 07/19/17 08:00 98.9 F 65 16 BP Pulse Ox Pulse Ox Pulse Ox 07/19/17 16:00 138/77 95 07/19/17 11:30 132/84 91 L 07/19/17 09:08 95 93 L 07/19/17 08:20 190/80 H 92 L 07/19/17 08:00 92 L Weight Admit Weight 231 lb Weight 235 lb I&O: 07/18/17 07/19/17 07/20/17 06:59 06:59 06:59 Intake Total 1480 1010 Output Total 2325 805 Balance -845 205 Result Diagrams: 07/19/17 05:38 07/19/17 05:38 Radiology Reviewed by me: Yes (CXR - B/L pleural effusion) EKG Reviewed by me: Yes (Tele Afib) Phys Exam - Physical Examination Constitutional: NAD Respiratory: no wheezing, no rhonchi Bibasilar rales with dec AE Cardiovascular: no rub, irregular Gastrointestinal: soft, non-tender, positive bowel sounds Musculoskeletal: edema present Neurological: non-focal, moves all 4 limbs Psychiatric: A&O x 3 Dx/Plan - Plan IMPRESSION: 1. Acute hypoxic respiratory failure secondary to congestive heart failure/? pneumonia. improving 2. Acute on chronic diastolic heart failure. improving 3. ?Community-acquired pneumonia, suspected pneumococcal. on Atbx 4. Bilateral lower extremity cellulitis, right more than left. wound care following.on Abx 5. Bilateral pleural effusion. 6. History of seizure disorder. on Keppra 7. Chronic atrial fibrillation. Bradycardic 8. Chronic bilateral lower extremity lymphedema. 9. Chronic venous insufficiency in bilateral lower extremities. 10. Hypertension. uncontrolled 11. Cardiac catheterization last year by Dr. Diaz per patient report. 12. Hyperlipidemia. 13. Chronic kidney disease stage 2. 14. Obesity with a body mass index of 30.3. 15. Macrocytic anemia. 16. Hyperkalemia. resolved 17. Gout. 18 Hypomagnessemia. 19. Chronic anticoagulation PLAN: * Pulmonary/Cardiology following * Cont Omnicef & Doxycycline * Cont PO Lasix * Cont wound care * AM labs * Losartan on hold due to elevated Cr * No betablockers due to bradycardia. * DC in AM if stable * Will need home O2 Review of Systems - Review of Systems Constitutional: negative: Fever, Chills, Sweats, Weakness, Malaise, Other Respiratory: SOB with Excertion. negative: Cough, Dry, Shortness of Breath, Hemoptysis, Pleuritic Pain, Sputum, Wheezing Cardiovascular: negative: Chest Pain, Palpitations, Orthopnea, Paroxysmal Noc. Dyspnea, Edema, Light Headedness, Other - Medications/Allergies Allergies/Adverse Reactions: Allergies Allergy/AdvReac Type Severity Reaction Status Date / Time No Known Drug Allergies Allergy Verified 07/15/17 22:23 Medications: Current Medications Acetaminophen (Tylenol) 650 mg PO Q4H PRN PRN Reason: Headache/Fever or Pain Albuterol/Ipratropium (Duoneb) 3 ml NEB Q4H PRN PRN Reason: SOB &/or Wheezing Allopurinol (Zyloprim) 100 mg PO DAILY [facility] Last Admin: 07/19/17 08:58 Dose: 100 mg Atorvastatin Calcium (Lipitor) 10 mg PO DAILY [facility] Last Admin: 07/19/17 08:58 Dose: 10 mg Calcium Carbonate (Tums) 1,000 mg PO Q4H PRN PRN Reason: Heartburn or Indigestion Cefdinir (Omnicef) 300 mg PO BID [facility] Last Admin: 07/19/17 08:58 Dose: 300 mg Docusate Sodium (Colace) 100 mg PO BID [facility] Last Admin: 07/19/17 08:58 Dose: 100 mg Doxycycline Hyclate (Vibramycin) 100 mg PO BID [facility] Last Admin: 07/19/17 08:57 Dose: 100 mg Famotidine (Pepcid) 20 mg PO BID [facility] Last Admin: 07/19/17 08:57 Dose: 20 mg Folic Acid (Folvite) 1 mg PO BID [facility] Last Admin: 07/19/17 08:57 Dose: 1 mg Furosemide (Lasix) 40 mg PO DAILY-[facility] Last Admin: 07/19/17 08:58 Dose: 40 mg Guaifenesin (Robitussin Sf) 200 mg PO Q4H PRN PRN Reason: Cough Hydralazine HCl (Apresoline) 10 mg SLOW IVP Q4H PRN PRN Reason: SBP Greater Than 180 Hydralazine HCl (Apresoline) 10 mg PO TID [facility] Last Admin: 07/19/17 14:34 Dose: 10 mg Levetiracetam (Keppra) 750 mg PO BID [facility] Last Admin: 07/19/17 08:56 Dose: 750 mg Mineral Oil/White Petrolatum (Eucerin Cream) 0 gm TOP BIDPRN PRN PRN Reason: Dry Skin Miscellaneous Medication (Pharmacy To Dose) 1 each IVPB .DAILY PRN PRN Reason: LABS Multivitamins (Theragran) 1 tab PO DAILY [facility] Last Admin: 07/19/17 08:58 Dose: 1 tab Nitroglycerin (Nitrostat) 0.4 mg PO Q5MIN PRN PRN Reason: Chest Pain Ondansetron HCl (Zofran Odt) 4 mg PO Q6H PRN PRN Reason: Nausea/Vomiting Ondansetron HCl (Zofran) 4 mg IVP Q6H PRN PRN Reason: Nausea/Vomiting Polyethylene Glycol (Miralax) 17 gm PO DAILY PRN PRN Reason: Constipation Rivaroxaban (Xarelto) 20 mg PO 1700 [facility] Last Admin: 07/19/17 16:53 Dose: 20 mg Senna (Senokot) 2 tab PO HSPRN PRN PRN Reason: Constipation Sodium Chloride (Flush - Normal Saline) 10 ml IVF PRN PRN PRN Reason: Saline Flush Last Admin: 07/17/17 17:30 Dose: 10 ml Thiamine HCl (Thiamine) 100 mg PO DAILY [facility] Last Admin: 07/19/17 08:58 Dose: 100 mg
[2017-07-20 06:35] LABS: Anion Gap 11 mmol/L (10-20); BUN (Urea Nitrogen) 41 mg/dL (8.4-25.7); BUN/Creatinine Ratio 30.83; Calc. Creatinine Clearance 75 mL/min (70-130); Calcium 8.9 mg/dL (7.8-10.44); Carbon Dioxide 31 mmol/L (23-31); Chloride 93 mmol/L (98-107); Estimated GFR-MDRD 53; Magnesium 1.5 mg/dL (1.6-2.6); Phosphorus 4.2 mg/dL (2.3-4.7)
[2017-07-20 06:50] LABS: Band 1 % (5-11); Hematocrit 38.1 % (42.0-52.0); Mean Platelet Volume 6.9 fL (7.4-10.4); Neutrophil 69 % (42-75); Red Blood Cell (RBC) Count 3.62 mill/uL (4.70-6.10); White Blood Cell (WBC) Count 5.9 thou/uL (4.8-10.8)
[2017-07-20] MEDS: Famotidine 20 MG TAB PO SCH ×2 (08:37→21:23)
[2017-07-20] MEDS: Cefdinir 300 MG CAP PO SCH ×2 (08:37→21:23)
[2017-07-20] MEDS: Folic Acid 1 MG TAB PO SCH ×2 (08:37→21:22)
[2017-07-20] MEDS: Doxycycline 100 MG CAP PO SCH ×2 (08:37→21:22)
[2017-07-20] MEDS: Furosemide 40 MG TAB PO SCH (08:37)
[2017-07-20] MEDS: Docusate 100 MG CAP PO SCH ×2 (08:37→21:23)
[2017-07-20] MEDS: Allopurinol 100 MG TAB PO SCH (08:37)
[2017-07-20] MEDS: levETIRAcetam 500 MG TAB PO SCH ×2 (08:37→21:22)
[2017-07-20] MEDS: Atorvastatin Calcium 10 MG TAB PO SCH (08:37)
[2017-07-20] MEDS: Multivit, Therapeutic 1 TAB PO SCH (08:38)
[2017-07-20] MEDS ORDERED: Magnesium Sulfate 2 GM in Sodium Chloride 0.9% 100 ML IVPB SCH (09:15)
[2017-07-20] MEDS ORDERED: Magnesium 2 GM/NS 0.9% 100 ML 2 GM in Premix Bag 1 BAG IVPB SCH (09:30)
--- NOTE | 2017-07-20 10:49 | PRG ---
DATE OF SERVICE: 07/20/2017 SUBJECTIVE: He feels better today and wants to go home. PHYSICAL EXAMINATION: VITAL SIGNS: Temperature is 99.9, pulse 61, respiratory rate is 20, O2 sat 92% on 3.5 liters, blood pressure 135/63. HEENT: Unremarkable. NECK: No JVD. LUNGS: Diminished breath sounds in the bases. CARDIAC: S1 and S2 regular. ABDOMEN: Soft. EXTREMITIES: Edematous. LABORATORY DATA: White blood cell count 5.9, hematocrit 38.1, platelet count 144. Sodium 130, pota ssium 4.5, chloride 93, CO2 31, BUN 41, creatinine 1.3, glucose 107, magnesium 1.5, and albumin 3.0. Urinalysis shows some protein. ASSESSMENT: Anasarca, likely from diastolic cardiac dysfunction. He has some proteinuria, but prob ably enough to call it nephrotic syndrome. RECOMMENDATIONS: 1. Would continue a slow diuresis. 2. Likely will need home oxygen for sometime. 3. Follow up in the office 2 to 3 weeks after discharge.
[2017-07-20] MEDS ORDERED: Loratadine 10 MG TAB PO SCH (11:45)
[2017-07-20] MEDS ORDERED: Fluticasone Propionate Nasal Spray 16 gm Bottle NASAL SCH (11:45)
--- NOTE | 2017-07-20 14:35 | PDOC.CTH ---
Cardiology Progress Note - Subjective Doing well. Tolerating meds. No CV symptoms reported. ROS otherwise negative. - Objective Vital Signs Temp Pulse Pulse Pulse Resp BP BP 07/20/17 12:41 98.7 F 45 L 18 07/20/17 09:32 50 L 53 L 172/79 H 147/70 H 07/20/17 07:43 99.9 F H 61 20 07/20/17 04:00 99.5 F 75 20 BP BP Pulse Ox Pulse Ox Pulse Ox 07/20/17 12:41 140/71 96 07/20/17 09:32 95 93 L 07/20/17 07:43 135/63 92 L 07/20/17 04:00 143/65 H 93 L Admit Weight 231 lb Weight 233 lb 07/19/17 07/20/17 07/21/17 06:59 06:59 06:59 Intake Total 1010 1040 Output Total 805 825 Balance 205 215 - Physical Examination General/Neuro: alert & oriented x3, NAD Neck: carotid US brisk, no JVD present Lungs: CTA, unlabored respirations Heart: PMI normal, RRR Abdomen: no HSM, NT/ND, soft Extremities: other: (2+ pulses, no edema) Other PE findings: Neuro: no focal motor defs - Telemetry Telemetry Rhythm: sinus rhythm - Labs Result Diagrams: 07/20/17 05:23 07/20/17 05:23 Troponin/CKMB CK-MB (CK-2) 4.1 ng/mL (0-6.6) 07/15/17 17:19 Troponin I 0.021 ng/mL (< 0.028) 07/16/17 05:15 - Assessment/Plan 1. CAP: improved. Continue antibiotics. 2. CHF: acute/chronic diastolic: stable with diuresis. Monitor lytes/renal function. Stable currently. Agree with switching to po lasix and holding ACEI for now due to increased BUN/creat. 3. HTN: controlled. Continue medical management. 4. CKD, II: stable. Monitor due to prerenal azotemia now with diuresis. Will sign off for now. He will see me in the office in 2-3 weeks. Call with CV issues. Should be ready for discharge soon.
--- NOTE | 2017-07-20 15:21 | PDOC.PN ---
- Subjective Encounter Start Date: 07/20/17 Encounter Start Time: 11:00 Patient seen and examined. Nasal congestion. No overnight events. - Objective Resuscitation Status: Resuscitation Status FULL:Full Resuscitation MAR Reviewed: Yes Vital Signs & Weight: Vital Signs (12 hours) Temp Pulse Pulse Pulse Resp BP BP 07/20/17 12:41 98.7 F 45 L 18 07/20/17 09:32 50 L 53 L 172/79 H 147/70 H 07/20/17 07:43 99.9 F H 61 20 07/20/17 04:00 99.5 F 75 20 BP BP Pulse Ox Pulse Ox Pulse Ox 07/20/17 12:41 140/71 96 07/20/17 09:32 95 93 L 07/20/17 07:43 135/63 92 L 07/20/17 04:00 143/65 H 93 L Weight Admit Weight 231 lb Weight 233 lb I&O: 07/19/17 07/20/17 07/21/17 06:59 06:59 06:59 Intake Total 1010 1040 Output Total 805 825 Balance 205 215 Result Diagrams: 07/20/17 05:23 07/20/17 05:23 EKG Reviewed by me: Yes (Tele Afib) Phys Exam - Physical Examination Constitutional: NAD HEENT: moist MMs Respiratory: no wheezing, no rhonchi Cardiovascular: no rub, irregular Gastrointestinal: soft, non-tender, positive bowel sounds Musculoskeletal: edema present Neurological: non-focal, moves all 4 limbs Psychiatric: A&O x 3 Dx/Plan - Plan IMPRESSION: 1. Acute hypoxic respiratory failure secondary to congestive heart failure/? pneumonia. improving 2. Acute on chronic diastolic heart failure. improving 3. ?Community-acquired pneumonia, suspected pneumococcal. on Atbx 4. Bilateral lower extremity cellulitis, right more than left. wound care following. on Abx 5. Bilateral pleural effusion. 6. History of seizure disorder. on Keppra 7. Chronic atrial fibrillation. 8. Chronic bilateral lower extremity lymphedema. 9. Chronic venous insufficiency in bilateral lower extremities. 10. Hypertension. uncontrolled 11. Cardiac catheterization last year by Dr. Diaz per patient report. 12. Hyperlipidemia. 13. Chronic kidney disease stage 2. 14. Obesity with a body mass index of 30.3. 15. Macrocytic anemia. 16. Hyperkalemia. resolved 17. Gout. 18 Hypomagnessemia. 19. Chronic anticoagulation PLAN: * Cont PO Lasix * Pulmonary/Cardiology following * Cont Omnicef & Doxycycline * Losartan on hold due to elevated Cr * No betablockers due to bradycardia. * Cont wound care * DC in AM if stable * Will need home O2 * Replace Mag * AM labs Review of Systems - Review of Systems Constitutional: negative: Fever, Chills, Sweats, Weakness, Malaise, Other ENT: Nose Congestion Respiratory: SOB with Excertion Cardiovascular: negative: Chest Pain, Palpitations, Orthopnea, Paroxysmal Noc. Dyspnea, Edema, Light Headedness, Other Gastrointestinal: negative: Nausea, Vomiting, Abdominal Pain, Diarrhea, Constipation, Melena, Hematochezia, Other - Medications/Allergies Allergies/Adverse Reactions: Allergies Allergy/AdvReac Type Severity Reaction Status Date / Time No Known Drug Allergies Allergy Verified 07/15/17 22:23 Medications: Current Medications Acetaminophen (Tylenol) 650 mg PO Q4H PRN PRN Reason: Headache/Fever or Pain Last Admin: 07/20/17 08:42 Dose: 650 mg Albuterol/Ipratropium (Duoneb) 3 ml NEB Q4H PRN PRN Reason: SOB &/or Wheezing Allopurinol (Zyloprim) 100 mg PO DAILY [facility] Last Admin: 07/20/17 08:37 Dose: 100 mg Atorvastatin Calcium (Lipitor) 10 mg PO DAILY [facility] Last Admin: 07/20/17 08:37 Dose: 10 mg Calcium Carbonate (Tums) 1,000 mg PO Q4H PRN PRN Reason: Heartburn or Indigestion Cefdinir (Omnicef) 300 mg PO BID [facility] Last Admin: 07/20/17 08:37 Dose: 300 mg Docusate Sodium (Colace) 100 mg PO BID [facility] Last Admin: 07/20/17 08:37 Dose: 100 mg Doxycycline Hyclate (Vibramycin) 100 mg PO BID [facility] Last Admin: 07/20/17 08:37 Dose: 100 mg Famotidine (Pepcid) 20 mg PO BID [facility] Last Admin: 07/20/17 08:37 Dose: 20 mg Fluticasone Propionate (Flonase Nasal [place]) 0 gm NASAL DAILY [facility] Folic Acid (Folvite) 1 mg PO BID [facility] Last Admin: 07/20/17 08:37 Dose: 1 mg Furosemide (Lasix) 40 mg PO DAILY-AC [facility] Last Admin: 07/20/17 08:37 Dose: 40 mg Guaifenesin (Robitussin Sf) 200 mg PO Q4H PRN PRN Reason: Cough Hydralazine HCl (Apresoline) 10 mg SLOW IVP Q4H PRN PRN Reason: SBP Greater Than 180 Hydralazine HCl (Apresoline) 10 mg PO TID [facility] Last Admin: 07/20/17 08:37 Dose: 10 mg Levetiracetam (Keppra) 750 mg PO BID [facility] Last Admin: 07/20/17 08:37 Dose: 750 mg Loratadine (Claritin) 10 mg PO NOW [facility] Stop: 07/20/17 16:00 Last Admin: 07/20/17 12:46 Dose: 10 mg Loratadine (Claritin) 10 mg PO DAILY [facility] Mineral Oil/White Petrolatum (Eucerin Cream) 0 gm TOP BIDPRN PRN PRN Reason: Dry Skin Miscellaneous Medication (Pharmacy To Dose) 1 each IVPB .DAILY PRN PRN Reason: LABS Multivitamins (Theragran) 1 tab PO DAILY [facility] Last Admin: 07/20/17 08:38 Dose: 1 tab Nitroglycerin (Nitrostat) 0.4 mg PO Q5MIN PRN PRN Reason: Chest Pain Ondansetron HCl (Zofran Odt) 4 mg PO Q6H PRN PRN Reason: Nausea/Vomiting Ondansetron HCl (Zofran) 4 mg IVP Q6H PRN PRN Reason: Nausea/Vomiting Polyethylene Glycol (Miralax) 17 gm PO DAILY PRN PRN Reason: Constipation Rivaroxaban (Xarelto) 20 mg PO 1700 [facility] Last Admin: 07/19/17 16:53 Dose: 20 mg Senna (Senokot) 2 tab PO HSPRN PRN PRN Reason: Constipation Sodium Chloride (Flush - Normal Saline) 10 ml IVF PRN PRN PRN Reason: Saline Flush Last Admin: 07/17/17 17:30 Dose: 10 ml Thiamine HCl (Thiamine) 100 mg PO DAILY [facility] Last Admin: 07/20/17 08:38 Dose: 100 mg
[2017-07-20] MEDS: Rivaroxaban 10 MG TAB PO SCH (15:58)
[2017-07-21] MEDS: Cefdinir 300 MG CAP PO SCH (08:00)
[2017-07-21] MEDS: Folic Acid 1 MG TAB PO SCH (08:00)
[2017-07-21] MEDS: Furosemide 40 MG TAB PO SCH (08:00)
[2017-07-21] MEDS: Atorvastatin Calcium 10 MG TAB PO SCH (08:01)
[2017-07-21] MEDS: levETIRAcetam 500 MG TAB PO SCH (08:01)
[2017-07-21] MEDS: Famotidine 20 MG TAB PO SCH (08:01)
[2017-07-21] MEDS: Multivit, Therapeutic 1 TAB PO SCH (08:01)
[2017-07-21] MEDS: Docusate 100 MG CAP PO SCH (08:01)
[2017-07-21] MEDS: Doxycycline 100 MG CAP PO SCH (08:02)
[2017-07-21] MEDS ORDERED: Loratadine 10 MG TAB PO SCH (09:00)
[2017-07-21] MEDS ORDERED: Fluticasone Propionate Nasal Spray 16 gm Bottle NASAL SCH (09:00)
[2017-07-21] MEDS: Allopurinol 100 MG TAB PO SCH (09:20)
--- NOTE | 2017-07-21 10:01 | PRG ---
DATE OF SERVICE: 07/21/2017 The patient is doing better, had no acute complaints. PHYSICAL EXAMINATION: VITAL SIGNS: Temperature 98.4, pulse 51, respiration rate 16, O2 sat 96% on 2.5 liters, blood press ure 130/74. HEENT: Unremarkable. NECK: No JVD. LUNGS: He has better air movement in both bases posteriorly. CARDIAC: S1 and S2 regular. ABDOMEN: Soft. EXTREMITIES: No edema except in the legs. ASSESSMENT: 1. Congestive heart failure with pleural effusions - improved symptomatically with diuresis. 2. Hypoxemia secondary congestive heart failure. PLAN: From my standpoint, he can go home. He will likely need home O2 for a short amount of time. I will be glad to see him in 2-3 weeks. Continue diuresis.
[2017-07-21 12:27] VITALS: BMI 31.4
[2017-07-21 14:30] VITALS: BP 167/76; TEMP 97.8
--- NOTE | 2017-07-21 19:30 | DIS ---
DATE OF ADMISSION: 07/15/2017 DATE OF DISCHARGE: 07/21/2017 DISCHARGE DISPOSITION: Home. FOLLOWUP: 1. Follow up with primary care physician, Dr. Mosley in 1 week. 2. Follow up with primary Cardiology, Dr. Phan Diaz in 1 week. 3. Follow up with Pulmonary, Dr. Heriberto Britt in 10 days. 4. Heart Failure Clinic followup. 5. Home oxygen has been arranged. 6. Base met with magnesium and phosphorus in 1 week. Primary care physician advised to follow. 7. Fluid restriction 2 liters a day has been recommended along with 2 grams sodium. ALLERGIES: No known drug allergies. The patient was seen and examined on the day of discharge, denies any new complaints. DISCHARGE MEDICATIONS: 1. Allopurinol 300 mg daily. 2. Vitamin C 1000 mg daily. 3. Lipitor 10 mg daily. 4. Omnicef 300 mg b.i.d. for 1 week. 5. Doxycycline 100 mg b.i.d. for 1 week. 6. Vitamin D3 1000 units daily. 7. Flonase nasal spray 2 sprays nasal daily. 8. Folic acid 1 mg b.i.d. 9. Lasix 40 mg daily. 10. Claritin 10 mg daily. 11. Magnesium 400 mg 3 times daily. 12. Multivitamin 1 tablet daily. 13. Xarelto 20 mg daily. 14. Hydralazine 10 mg 3 times daily. 15. Keppra 750 mg b.i.d. INPATIENT CONSULTANTS: Pulmonary, Dr. Britt and Cardiology, Dr. Juan Garcia. DIAGNOSTIC TESTS: 1. Echocardiogram showed left ventricular ejection fraction of 60-65% with diastolic dysfunction. 2. CT angiogram of the chest on admission was negative for pulmonary embolism. It showed right gre ater than left pleural effusion. 3. Chest x-ray on 07/19/2017 showed moderate size, right pleural effusion with atelectasis. 4. Bilateral lower extremity Doppler was negative for DVT. BRIEF HOSPITAL COURSE: The patient is a 71-year-old male with chronic venous stasis, hypertension, chronic atrial fibrillation on anticoagulation, and presented to the hospital with bilateral lower e xtremity swelling. He was found to have hypoxia with O2 saturation of 84% on room air. He was refe rred from an urgent care. Please refer to the history and physical dated 07/15/2017 for further det ails. The patient was admitted to the hospital with the diagnosis of acute hypoxic respiratory failure sec ondary to acute on chronic diastolic heart failure with questionable pneumonia. He also had bilater al lower extremity cellulitis. He was placed on broad spectrum antibiotics along with diuretics wit h slow response. He was evaluated by Cardiology and Pulmonary. His medications have been optimized . He also had hyperkalemia on admission that has resolved. He received wound care for bilateral lo wer extremity cellulitis. He will follow up with the above consultants as outpatient and Heart Fail ure Clinic followup has been arranged as well. SIGNIFICANT LABS: 1. Creatinine yesterday was 1.33 with a BUN 41. 2. Magnesium 1.5, replaced. 3. Potassium on admission 5.7. 4. Sodium on admission 129 and at discharge is 130. 5. BNP was 667. FINAL DIAGNOSES: 1. Acute hypoxic respiratory failure secondary to congestive heart failure exacerbation with questi onable pneumonia. 2. Acute on chronic diastolic heart failure. 3. Suspected community-acquired pneumonia. Questionable pneumococcal. 4. Bilateral lower extremity cellulitis. 5. Hyperkalemia on admission, resolved. 6. Seizure disorder. 7. Chronic atrial fibrillation on anticoagulation. 8. Chronic bilateral lower extremity lymphedema. 9. Chronic venous insufficiency in bilateral lower extremities. 10. Hypertension. 11. Hyperlipidemia. 12. Chronic kidney disease stage 2. 13. Obesity with a body mass index 30.3. 14. Macrocytic anemia. 15. Chronic anticoagulation. 16. Hypomagnesemia. 17. Gout. Plan of care was discussed with the patient and the family at the bedside. They stated ken neri
== END 2017-07-21 17:11 | disposition home or self-care (01) | DRG 291 ==
LOC: SCSER 16:51 → 2NO 18:37
PROVIDERS: ADMIT Internal Medicine; ATTEND Internal Medicine
DX: I13.0 Hypertensive heart and chronic kidney disease with heart failure and stage 1 through stage 4 chronic kidney disease, or unspecified chronic kidney disease (principal); J96.01 Acute respiratory failure with hypoxia; J13 Pneumonia due to Streptococcus pneumoniae; L03.115 Cellulitis of right lower limb; E87.5 Hyperkalemia; L03.116 Cellulitis of left lower limb; E87.1 Hypo-osmolality and hyponatremia; I48.0 Paroxysmal atrial fibrillation; I50.33 Acute on chronic diastolic (congestive) heart failure; E83.42 Hypomagnesemia; Z79.01 Long term (current) use of anticoagulants; I87.2 Venous insufficiency (chronic) (peripheral); E78.5 Hyperlipidemia, unspecified; D53.9 Nutritional anemia, unspecified; E66.9 Obesity, unspecified; Z68.30 Body mass index [BMI] 30.0-30.9, adult; N18.2 Chronic kidney disease, stage 2 (mild); G40.909 Epilepsy, unspecified, not intractable, without status epilepticus; M10.9 Gout, unspecified; Z87.891 Personal history of nicotine dependence
CPT/HCPCS: 36415; 71010; 71020; 71275; 80048; 80053; 80069; 81001; 82550; 82553; 82570; 82607; 82746; 83605; 83690; 83735; 83880; 83930; 84100; 84156; 84443; 84484; 84550; 85025; 85610; 85730; 87040; 93005; 93306; 93798; 93970; 94760; 96365; 96367; 96375; A4216; J0456; J0696; J1940; J1956; J3370; J3475; J3490; J7050

== ENCOUNTER 2017-08-19 14:07 | Inpatient (IN) | payer MEDICARE, OTHER ==
[2017-08-19] MEDS ORDERED: Nitroglycerin 2% Ointment 1 INCH/1 GM Packet ONE (15:01)
[2017-08-19 15:04] LABS: #Basophils 0.1 thou/uL (0.0-0.2); #Eosinphils 0.2 thou/uL (0.0-0.7); #Lymphocytes 1.9 thou/uL (1.20-3.40); #Monocytes 0.9 thou/uL (0.11-0.59); #Neutrophils 5.5 thou/uL (1.40-6.50); %Basophils 0.6 % (0.0-1.0); %Eosinophils 2.5 % (0.0-10.0); %Lymphocytes 21.9 % (21.0-51.0); %Monocytes 10.2 % (0.0-10.0); Hematocrit 37.3 % (42.0-52.0); Mean Platelet Volume 7.1 fL (7.4-10.4); Red Blood Cell (RBC) Count 3.56 mill/uL (4.70-6.10); White Blood Cell (WBC) Count 8.5 thou/uL (4.8-10.8)
[2017-08-19 15:40] LABS: Lactic Acid - Sepsis 0.8 mmol/L (0.5-2.2)
[2017-08-19 15:45] LABS: ALT (SGPT) 28 U/L (8-55); AST (SGOT) 30 U/L (5-34); Alkaline Phosphatase 148 U/L (40-150); Anion Gap 16 mmol/L (10-20); BUN (Urea Nitrogen) 46 mg/dL (8.4-25.7); Bilirubin, Total 0.8 mg/dL (0.2-1.2); CK (CPK) 39 U/L (30-200); Calc. Creatinine Clearance 0 mL/min (70-130); Calcium 9.5 mg/dL (7.8-10.44); Carbon Dioxide 34 mmol/L (23-31); Chloride 91 mmol/L (98-107); Estimated GFR-MDRD 54; Globulin 2.9 g/dL (2.4-3.5); Protein, Total 6.7 g/dL (5.8-8.1)
[2017-08-19 15:49] LABS: Troponin I 0.019 ng/mL (< 0.028)
[2017-08-19 15:57] LABS: Oxyhemoglobin 91.1 % (94.0-97.0); Sodium 133 mmol/L (135-148)
[2017-08-19 15:58] LABS: Mode MASK BIPAP 20/5; Modified Allen's Test NOT DONE; PIP 20 cmH2O; Vent NO
[2017-08-19] MEDS ORDERED: Furosemide 40 MG/4 ML VIAL ONE (16:07)
--- NOTE | 2017-08-19 16:08 | RAD ---
CHEST ONE VIEW: 08/19/17 HISTORY: Dyspnea. COMPARISON: 07/19/17. FINDINGS: The cardiac silhouette is magnified, enlarged, and partially obscured by worsening bibasilar infiltr ates and bilateral pleural fluid. Pulmonary vasculature is engorged with prominent bilateral perihil ar infiltrates. There is no evidence of pneumothorax. The groundwater monitoring technician leads overlie the chest. IMPRESSION: CHF. POS: JUAQUIN
[2017-08-19] MEDS ORDERED: Guaifenesin DM 100-10/5 ML UDCUP PO PRN (17:13)
[2017-08-19] MEDS ORDERED: Dextrose 5% in Water 1,000 ML IV PRN (17:13)
[2017-08-19] MEDS ORDERED: Ondansetron HCl/PF 4 MG/2 ML Vial IVP PRN (17:13)
[2017-08-19] MEDS ORDERED: Insulin Regular 300 UNITS/3 ML VIAL SC PRN (17:13)
[2017-08-19] MEDS ORDERED: Acetaminophen 325 MG TAB PO PRN (17:13)
[2017-08-19] MEDS ORDERED: Dextrose 50% Abboject 50 ML SYRINGE SLOW IVP PRN (17:13)
--- NOTE | 2017-08-19 19:03 | HP ---
REASON FOR ADMISSION: Acute respiratory failure with hypercarbia and hypoxia, acute congestive heart failure exacerbation with diastolic dysfunction. HISTORY OF PRESENT ILLNESS: The patient had a follow up with Dr. Britt this morning. The had portable tanks and she was switching from one to another and the valve of one of the tanks came off. He was off oxygen for a few minutes. Normally, the patient is on 3 liters of oxygen at home. His spo2 dropped down to 86% after placing the oxygen. He was subsequently moved to emergency room from where he is being admitted now. The patient has history of diastolic dysfunction with his heart failure. He has been progressively gaining weight. The last weight is 249 pounds. He normally is good at around 239 pounds. The is very meticulous in giving him Lasix based on his weight. She has been changing the dose of his Lasix based on the weight and from yesterday she has been giving him 40 mg twice daily. He has lower extremity edema with ulcers and does wrapping on the legs. He normally ambulates minimally in the house. No complaints of fever. Has some dry cough, but no expectoration. No complaints of urinary symptoms as such. PAST MEDICAL AND SURGICAL HISTORY: History of chronic atrial fibrillation, chronic venous stasis, seizure disorder, hypertension, tonsillectomy, prior vein ablation, bilateral ankle surgery. He was recently discharged on 2016 for similar complaints and had diuresis done. Hypertension, dyslipidemia, obesity, macrocytic anemia, and gout. Medications at home: please see detailed info on [employer] which is reconciled at admission, norvasc and xarelto will be held for now. NKDA PERSONAL HISTORY: Does not abuse alcohol or drugs. No history of smoking. FAMILY HISTORY: There is history of heart disease in the family. REVIEW OF SYSTEMS: The following complete review of systems was negative, unless otherwise mentioned in the HPI or below: Constitutional: Weight loss or gain, ability to conduct usual activities. Skin: Rash, itching. Eyes: Double vision, pain. ENT/Mouth: Nose bleeding, neck stiffness, pain, tenderness. Cardiovascular: Palpitations, dyspnea on exertion, orthopnea. Respiratory: Shortness of breath, wheezing, cough, hemoptysis, fever or night sweats. Gastrointestinal: Poor appetite, abdominal pain, heartburn, nausea, vomiting, constipation, or diarrhea. Genitourinary: Urgency, frequency, dysuria, nocturia. Musculoskeletal: Pain, swelling. Neurologic/Psychiatric: Anxiety, depression. Allergy/Immunologic: Skin rash, bleeding tendency. PHYSICAL EXAMINATION: GENERAL: The patient is a 71-year-old male who is currently on BiPAP. He is very lethargic at present. VITAL SIGNS: Blood pressure 148/74, pulse 40 per minute, respiratory rate is 22 per minute, saturating 87% on 4 liters oxygen prior to going on BiPAP, currently 93% on BiPAP, and temperature 98 degrees Fahrenheit. NECK: Supple. There is mild elevation in JVD. HEENT: Extraocular muscles are intact. Pupils are reacting to light. Oral cavity: Mucous membranes are dry. No exudates or congestion. CARDIOVASCULAR: S1, S2 heard. Irregular rhythm, bradycardic. RESPIRATORY: Air entry 1+ bilateral rales plus. ABDOMEN: Soft, bowel sounds heard. No tenderness, rigidity or guarding. EXTREMITIES: There is peripheral edema. His legs are wrapped at present. VASCULAR SYSTEM: Peripheral pulses 1+ bilateral. No ischemic ulcerations or gangrene. CENTRAL NERVOUS SYSTEM: No gross focal deficits seen. The patient moves all 4 extremities. PSYCHIATRIC: Cannot be accurately assessed as the patient is lethargic at present. LABORATORY AND DIAGNOSTIC DATA: Echo done during his previous hospitalization here on the 30 of this year showed EF of 60-65% with diastolic dysfunction. There is no regional wall motion abnormalities seen. His aortic valve was thickened, but no stenosis as such. White count of 8, H\T\H 11 and 37, platelet count 138 with 64% neutrophils, MCV is 105. Blood gas done shows a pH of 7.29, PCO2 of 83, pO2 of 78. Serum bicarbonate is 34, BUN 46, creatinine 1.3 , and glucose 122. Liver enzymes within normal limits. Troponin I 0.01. BNP is 995, albumin is 3.8. Chest x-ray done shows pulmonary vascular congestion with cardiomegaly. EKG done shows atrial fibrillation, but with ventricular rate of 48 beats per minute. There is Q-wave seen in V2, V3. CLINICAL IMPRESSION AND PLAN: The patient will be admitted to the [facility] for acute respiratory failure with hypercarbia and hypoxia, severe bradycardia, acute on chronic congestive heart failure exacerbation with diastolic dysfunction. He will be on Lasix 40 mg IV q.12 h. We will continue his BiPAP settings as of now. I have consulted Dr. Calvin for electrophysiology with his heart rate going down to 39 with 38 beats in the ER. I have also spoken to Dr. Britt for Pulmonology and Critical Care consult. We will continue his aspirin , allopurinol, Lipitor, folic acid, and Keppra as before. He will be closely monitored and if needed, we will be placed on dobutamine if the patient's heart rate were to worsen. Power of mergers and acquisitions attorney is his . CODE STATUS: FULL for now. We will continue to closely monitor him in IMCU. Please note, the patient is on Xarelto and the last dose he had was yesterday. This will be held for now in view of bradycardia and possible emergent pacemaker placement if needed or for transvenous pacing. DARRIN
[2017-08-19] MEDS ORDERED: DOPamine 400 MG/D5W 250 ML 250 ML IVPB SCH (19:30)
[2017-08-19] MEDS ORDERED: Furosemide 100 MG/10 ML VIAL SLOW IVP SCH (20:15)
[2017-08-19] MEDS: Folic Acid 1 MG TAB PO SCH (21:04)
[2017-08-19] MEDS: Famotidine/PF 20 mg/2ml Vial SLOW IVP SCH (21:04)
[2017-08-19] MEDS: Docusate 100 MG CAP PO SCH (21:04)
[2017-08-19] MEDS: levETIRAcetam 500 MG TAB PO SCH (21:04)
--- NOTE | 2017-08-19 21:47 | CON ---
HISTORY OF PRESENT ILLNESS: Patient is an unfortunate 71-year-old gentleman with a history of diastolic heart failure who presented with increasing dyspnea and lower extremity swelling. The patient had been followed primarily by Dr. Phan Diaz. He apparently underwent a cardiac catheterization approximately a year ago He was found to have normal coronary arteries. The patient was seen here approximately a month ago with congestive heart failure. He underwent an echocardiogram which revealed normal left ventricular ejection fraction 60-65% with evidence of diastolic dysfunction. The patient was treated with IV diuretics. The patient was in usual state of health when he started developing increasing dyspnea and weight gain. He presented to emergency room markedly dyspneic. PAST MEDICAL HISTORY: 1. Chronic atrial fibrillation. 2. Congestive heart failure. 3. Hypertension. 4. Dyslipidemia. 5. Seizure disorder. PAST SURGICAL HISTORY: Tonsillectomy and ankle surgery. SOCIAL HISTORY: Nonsmoker. FAMILY HISTORY: There is a positive family history of coronary artery disease. ALLERGIES: No known drug allergies. MEDICATIONS ON ADMISSION: Xarelto 20 daily, Lipitor 10 at bedtime, Norvasc 5 daily, Allopurinol 300 daily , Lasix 40 b.i.d.and Folic acid 1 mg b.i.d. REVIEW OF SYSTEMS: Noticeable for weight gain, otherwise unremarkable. PHYSICAL EXAMINATION: GENERAL: Obese gentleman in acute respiratory distress. VITAL SIGNS: Blood pressure 137/104, heart rate was 45. NECK: Full. LUNGS: Crackles throughout both lung ramírez. HEART: Irregular rate and rhythm, normal S1, S2. I/ systolic murmur. ABDOMEN: Distended. EXTREMITIES: Extremely severe bilateral edema with stasis changes. NEUROLOGIC: Nonfocal. VASCULAR: Radial pulses 2+.. LABORATORY: Sodium 136, potassium 4.7, chloride 91, bicarbonate 34, BUN 46, creatinine 1.3. White blood cell count 8.5, hemoglobin 11.5, hematocrit 37.3, platelets are 138. EKG revealed atrial fibrillation with a slow ventricular response with poor R-wave progression. IMPRESSION: 1. Atrial fibrillation with slow ventricular response. 2. Congestive heart failure, secondary to diastolic dysfunction. 3. History of normal coronary arteries. 4. Morbid obesity. 5. Chronic venous ulcers. 6. Hypertension. This gentleman presents with acute congestive heart failure, probably secondary to diastolic dysfunction. He had a normal left ventricular ejection fraction on last hospitalization. From a cardiac standpoint, he needs to be diuresed with IV Lasix. He has been started by the EP service on dopamine to increase his heart rate. He most likely will need an electronic ventricular pacemaker. Xarelto will be held temporarily. We will follow this patient with you through his hospitalization. DARRIN
--- NOTE | 2017-08-19 22:45 | CON ---
DATE OF SERVICE: 08/19/2017 CONSULTING PHYSICIAN: Adonis Jeffery M.D. REASON FOR CONSULTATION: Congestive heart failure with respiratory failure. HISTORY OF PRESENT ILLNESS: The patient is a 71-year-old male who presented to my office earlier to day for followup of previous hospitalization. At that time, he had been sent home on oxygen and had been in the hospital in early to mid July with congestive heart failure. When he arrived at my office, he did not have oxygen on, had O2 sats between 44% and 50% on room air with diffuse cyanosis in his fingers and on his face. We were able to sequester some oxygen in the office and put him on 4 L nasal cannula and he improved to about 85% and subsequently, sent him over to the ER for admiss ion for treatment of his heart failure. PAST MEDICAL HISTORY: 1. Chronic atrial fibrillation. 2. Chronic venous stasis. 3. Previous recent hospitalization with congestive heart failure. PAST SURGICAL HISTORY: 1. Tonsillectomy. 2. Leg vein ablation. 3. Bilateral ankle surgery. SOCIAL HISTORY: Quit smoking many years ago. Does not consume alcohol. REVIEW OF SYSTEMS: He says he overall feels poorly. He has not been eating much. MEDICATIONS PRIOR TO ADMISSION: Levetiracetam, Apresoline, Xarelto, Theragran, Claritin, Lasix, fol ate, Flonase nasal spray, doxycycline, Omnicef, atorvastatin, vitamin C, allopurinol. PHYSICAL EXAMINATION: VITAL SIGNS: O2 sat was running in the 90s, heart rate in the 30s to 40s, his current FiO2 is 50%, blood pressure 130/70, respiratory rate 25. GENERAL: He is an elderly male who appears older than his stated age. HEENT: Remarkable for cyanosis on tip of his nose, some rosacea there. NECK: No adenopathy or JVD. LUNGS: Diffuse crackles bilaterally with diminished breath sounds at both bases. CARDIAC: S1, S2, irregularly irregular without murmur. ABDOMEN: Soft, obese. EXTREMITIES: Cyanosis in the fingers and toes. LABORATORY DATA: White blood cell count 8.5, hematocrit 37.3, platelet count 138. PH 7.29, pCO2 of 83, pO2 of 78 that was on BiPAP 20/5 with FiO2 of 50%. Sodium 136, potassium 4.7, chloride 91, CO2 of 34, BUN 46, creatinine 1.3, glucose 122. BNP 995. Chest x-ray showed bilateral lower lobe infi ltrates along with small bilateral pleural effusions. ASSESSMENT: 1. Congestive heart failure. 2. Severe hypoxemia secondary to congestive heart failure. 3. Symptomatic bradycardia. PLAN: 1. Agree with use of BiPAP. 2. Agree with diuresis. 3. Cardiology has been consulted. 4. I would be happy to follow this case with you. Thank you for the referral.
[2017-08-20 04:39] LABS: #Basophils 0.1 thou/uL (0.0-0.2); #Eosinphils 0.3 thou/uL (0.0-0.7); #Lymphocytes 1.4 thou/uL (1.20-3.40); #Monocytes 1.1 thou/uL (0.11-0.59); #Neutrophils 6.1 thou/uL (1.40-6.50); %Eosinophils 3.6 % (0.0-10.0); %Lymphocytes 15.7 % (21.0-51.0); %Monocytes 11.8 % (0.0-10.0); Hematocrit 36.3 % (42.0-52.0); Mean Platelet Volume 7.5 fL (7.4-10.4); Red Blood Cell (RBC) Count 3.49 mill/uL (4.70-6.10)
[2017-08-20 04:57] LABS: ALT (SGPT) 24 U/L (8-55); AST (SGOT) 34 U/L (5-34); Alkaline Phosphatase 130 U/L (40-150); Anion Gap 16 mmol/L (10-20); BUN (Urea Nitrogen) 47 mg/dL (8.4-25.7); Bilirubin, Total 0.7 mg/dL (0.2-1.2); Calc. Creatinine Clearance 85 mL/min (70-130); Calcium 9.3 mg/dL (7.8-10.44); Carbon Dioxide 32 mmol/L (23-31); Chloride 92 mmol/L (98-107); Estimated GFR-MDRD 56; Globulin 2.9 g/dL (2.4-3.5); Protein, Total 6.2 g/dL (5.8-8.1)
[2017-08-20] MEDS: Furosemide 100 MG/10 ML VIAL SLOW IVP SCH ×2 (05:36→15:36)
[2017-08-20] MEDS ORDERED: Furosemide 40 MG/4 ML VIAL SLOW IVP SCH (06:00)
--- NOTE | 2017-08-20 07:14 | CON ---
DATE OF CONSULTATION: 08/19/2017 ELECTROPHYSIOLOGY CONSULTATION REPORT REFERRING PHYSICIAN: Adonis Jeffery M.D. I am seeing Mr. Dotson at our [facility] Telemetry Floor as an electrophysiology consult ant. His problems are: 1. Acute atrial fibrillation with slow ventricular response. A. Chronic history of atrial fibrillation noted in the past. 2. Acute respiratory failure with elevated BNP at 995. A. Prior history of diastolic heart failure, admission in end of 07/15/2017 in our facility. 3. History of chronic venous stasis and lower extremity cellulitis in the past. A. A 2D echo from 07/16/2017, reveals an LVEF of 60% to 65%. B. Trivial aortic regurgitation. 4. History of pleural effusions in the past. 5. Coronary artery risk factors, hypertension, hyperlipidemia. 6. History of seizures in the past. 7. History of chronic obstructive pulmonary disease, on home O2. 8. History of ETOH abuse. ALLERGIES: None noted. SUBJECTIVE: Mr. Dotson was admitted today with acute respiratory failure symptoms. He again dem onstrates markedly elevated BNP and his chest x-ray is suggestive of CHF/fluid overload. He is also noted to have slow ventricular rates with continued atrial fibrillation which is being chronic. He has not been markedly hypertensive. He has no stroke-like symptoms. No neurological deficits, but he is markedly lethargic and weak and somewhat disoriented. No other focalizing neurological defic its are noted. REVIEW OF SYSTEMS: Rest of the 12-point system otherwise unremarkable. HOME MEDICATIONS: Include allopurinol, loratadine, levetiracetam, atorvastatin, amlodipine, furosem fabian, folic acid, Flonase, and also Xarelto, last dose yesterday. SOCIAL HISTORY: The patient drinks on a daily basis, less that 5 drinks per day. Denies drug use. He is not a current smoker but quit smoking 10 years ago. Lives at home with family. FAMILY HISTORY: Positive for heart problems. OBJECTIVE DATA: VITAL SIGNS: Blood pressure initially is 122/56, heart rate 42, respirations 12, the patient is afe brile. GENERAL: Poorly arousable, somnolent man, in no apparent distress. NECK: Supple. Jugular veins are difficult to evaluate due to obesity. CHEST: Coarse, few crackles. CARDIAC: Heart sounds are irregularly irregular. S1 and S2 are variable. No gallop is appreciated . ABDOMEN: Benign. Bowel sounds are positive. EXTREMITIES: Lower extremities without edema, clubbing, or cyanosis. DATABASE: The telemetry strips reveal atrial fibrillation with slow ventricular response. EKG, lik ewise, no significant ST-T changes noted, narrow QRS is documented, QTc is 423. LABORATORY DATA: Sodium 136, potassium 4.7, BUN 46, creatinine 1.3, AST and ALT are normal, 30 and 28. CK 4.3, troponin 0.019, BNP is 995. Blood gas with pH 7.29, pCO2 of 83, pO2 of 78. White cell is 8.5, hemoglobin 11.5, platelet count is 138. ASSESSMENT AND PLAN: Mr. Dotson is a 71-year-old man with a history of diastolic heart failure w ith an acute exacerbation, the cause of his admission today. Also, of note, that his chronic atrial fibrillation has had slow ventricular rates in the past but now again bradycardic rates are noted. Reason for his heart failure exacerbation is not entirely clear. His recent echocardiogram reveals preserved left ventricular systolic function and diastolic function difficult to assess due to the p resence of atrial fibrillation. The bradycardia is not extreme, likely not the sole cause for his h eart failure exacerbation. Also adding to his hypoxia is some hypercapnic respiratory failure, migh t be related to chronic obstructive pulmonary disease. At this point, I think the priority would be continued diuresis, supportive measures with BiPAP and chronic obstructive pulmonary disease care. If necessary for heart rate support, a low dose dopamin e could be instituted. Further cardiac assessment might be reasonable to consider a workup for isch emia if that is not recently done. We will discuss with Dr. Saeed, Dr. Garcia's partner and Dr. Schuyler white as well.
[2017-08-20] MEDS ORDERED: [UNRECOGNIZED DRUG - REMARK] FS SCH (09:00)
[2017-08-20] MEDS ORDERED: FLU VACC TS2017-18 (>65YR) 0.5 ML SYRINGE IM ONE (09:00)
[2017-08-20] MEDS: Docusate 100 MG CAP PO SCH ×2 (09:06→21:00)
[2017-08-20] MEDS: Atorvastatin Calcium 10 MG TAB PO SCH (09:06)
[2017-08-20] MEDS: Allopurinol 300 MG TAB PO SCH (09:06)
[2017-08-20] MEDS: Famotidine/PF 20 mg/2ml Vial SLOW IVP SCH ×2 (09:07→21:00)
[2017-08-20] MEDS: Folic Acid 1 MG TAB PO SCH ×2 (09:07→21:01)
[2017-08-20] MEDS: Enoxaparin Sodium 120 MG/0.8 ML SYRINGE SC SCH ×2 (09:07→21:00)
[2017-08-20] MEDS: levETIRAcetam 500 MG TAB PO SCH ×2 (09:08→21:01)
[2017-08-20] MEDS: Multivit, Therapeutic 1 TAB PO SCH (09:08)
--- NOTE | 2017-08-20 12:53 | PRG ---
DATE OF SERVICE: 08/20/2017 SUBJECTIVE: He feels better compared to yesterday. He has been weaned off BiPAP and is now on a na izabel cannula. OBJECTIVE: VITAL SIGNS: His temperature 97.5, pulse 56, respiration 24, O2 sat 90-95% on 4 liters, blood press ure 107/27. HEENT: Unremarkable. NECK: No JVD. LUNGS: A few crackles in the bases. CARDIAC: S1 and S2 regular. ABDOMEN: Soft. EXTREMITIES: 2+ edema. LABORATORY DATA: White blood cell count 9, hematocrit 36.3, platelet count 136. Sodium 135, potass ium 5.2, chloride 92, CO2 of 30, BUN 47, creatinine 1.3, glucose 111. ASSESSMENT: 1. Congestive heart failure -- acute diastolic. 2. Bradycardia. 3. Acute hypoxic and hypercapnic respiratory failure which is improved. PLAN: 1. At some point, he will probably need a pacemaker. 2. Continue diuresis. 3. Continue BiPAP as needed.
[2017-08-20 14:12] LABS: BUN (Urea Nitrogen) 47 mg/dL (8.4-25.7); Calc. Creatinine Clearance 73 mL/min (70-130); Calcium 9.4 mg/dL (7.8-10.44); Estimated GFR-MDRD 47
[2017-08-20 14:35] LABS: Chloride 90 mmol/L (98-107)
[2017-08-20 14:38] LABS: Anion Gap 18 mmol/L (10-20); Carbon Dioxide 32 mmol/L (23-31)
[2017-08-20] MEDS: DOPamine 400 MG/D5W 250 ML 250 ML IVPB PRN (15:47)
--- NOTE | 2017-08-20 19:09 | PDOC.PN ---
- Subjective Encounter Start Date: 08/20/17 Encounter Start Time: 14:15 Patient seen and examined. No new complaints. No overnight events. Mentation improved. Feels better. - Objective Resuscitation Status: Resuscitation Status FULL:Full Resuscitation MAR Reviewed: Yes Vital Signs & Weight: Vital Signs (12 hours) Temp Pulse Resp BP Pulse Ox 08/20/17 15:18 98.3 F 58 L 20 158/61 H 86 L 08/20/17 11:31 97.9 F 56 L 20 125/52 L 89 L 08/20/17 08:19 95 08/20/17 07:50 97.5 F L 56 L 24 H 93 L 08/20/17 07:17 97.5 F L 56 L 24 H 107/27 L 90 L Weight Weight 249 lb I&O: 08/19/17 08/20/17 08/21/17 06:59 06:59 05:59 Intake Total 305 836 Output Total 1500 1975 Balance -4312 -2560 Result Diagrams: 08/21/17 04:12 08/21/17 04:11 Additional Labs: Accuchecks 08/20/17 08/20/17 08/20/17 18:02 12:00 00:07 POC Glucose 139 H 114 H 111 H EKG Reviewed by me: Yes (Tele bradycardia) Phys Exam - Physical Examination Constitutional: NAD Respiratory: no wheezing, no rhonchi Symmetrical, Dec AE at bases Cardiovascular: no rub, irregular no heaves/pulsations Gastrointestinal: soft, non-tender, positive bowel sounds Musculoskeletal: edema present Neurological: non-focal, normal sensation, moves all 4 limbs Psychiatric: normal affect, A&O x 3 Dx/Plan - Plan IMPRESSION: 1. Acute hypoxic/hypercapnic respiratory failure secondary to congestive heart failure 2. Acute on chronic diastolic heart failure. improving 3. Afib with slow vent response - on Dopamine drip 4. Toxic metabolic encephalopathy due to # 1 - improving. 5. Bilateral pleural effusion. 6. History of seizure disorder. on Keppra 7. Chronic atrial fibrillation. on Anticoag. Xarelto changed to Lovenox. 8. Chronic bilateral lower extremity lymphedema. 9. Chronic venous insufficiency in bilateral lower extremities. 10. Hypertension. 11. Cardiac catheterization last year by Dr. Diaz per patient report. 12. Hyperlipidemia. 13. Chronic kidney disease stage 2. 14. Obesity with a body mass index of 34.7. 15. Macrocytic anemia. 16. Gout. 17. Hyperkalemia - resolved. PLAN: * Cont Diuretics * On Dopamine * Pulmonary/Cardiology/EP following * AM labs * DC insulin sliding scale/acuchecks * Change Pepcid to PO * Cont eddy Review of Systems - Review of Systems Respiratory: SOB with Excertion. negative: Cough, Dry, Shortness of Breath, Hemoptysis, Pleuritic Pain, Sputum, Wheezing Gastrointestinal: negative: Nausea, Vomiting, Abdominal Pain, Diarrhea, Constipation, Melena, Hematochezia, Other - Medications/Allergies Allergies/Adverse Reactions: Allergies Allergy/AdvReac Type Severity Reaction Status Date / Time No Known Drug Allergies Allergy Verified 07/15/17 22:23 Medications: Current Medications Acetaminophen (Tylenol) 650 mg PO Q4H PRN PRN Reason: Headache/Fever or Pain Allopurinol (Zyloprim) 300 mg PO DAILY [facility] Last Admin: 08/20/17 09:06 Dose: 300 mg Aspirin (Aspirin Chewable) 81 mg PO DAILY [facility] Last Admin: 08/20/17 09:06 Dose: 81 mg Atorvastatin Calcium (Lipitor) 10 mg PO DAILY [facility] Last Admin: 08/20/17 09:06 Dose: 10 mg Dextrose/Water (Dextrose 50%) 25 gm SLOW IVP PRN PRN PRN Reason: Hypoglycemia Docusate Sodium (Colace) 100 mg PO BID [facility] Last Admin: 08/20/17 09:06 Dose: 100 mg Enoxaparin Sodium (Lovenox) 110 mg SC 0900,2100 [facility] Last Admin: 08/20/17 09:07 Dose: 110 mg Famotidine (Pepcid) 20 mg SLOW IVP Q12HR [facility] Last Admin: 08/20/17 09:07 Dose: 20 mg Folic Acid (Folvite) 1 mg PO BID [facility] Last Admin: 08/20/17 09:07 Dose: 1 mg Furosemide (Lasix) 80 mg SLOW IVP 0600,1400 [facility] Last Admin: 08/20/17 15:36 Dose: 80 mg Glucagon (Glucagon) 1 mg IM PRN PRN PRN Reason: Hypoglycemia Guaifenesin/Dextromethorphan (Robitussin Dm) 15 ml PO Q4H PRN PRN Reason: Cough Dextrose/Water (D5w) 1,000 mls @ 0 mls/hr IV .Q0M PRN; As Directed PRN Reason: Hypoglycemia Dopamine HCl/Dextrose (Dopamine/D5w) 250 mls @ 0 mls/hr IVPB INF PRN; Protocol ; As Directed PRN Reason: TO KEEP HR >50 Last Admin: 08/20/17 15:47 Dose: 250 mls Insulin Human Regular (Humulin R) 0 units SC .MODERATE SLIDING SC PRN PRN Reason: Moderate Correctional Scale Levetiracetam (Keppra) 750 mg PO BID [facility] Last Admin: 08/20/17 09:08 Dose: 750 mg Multivitamins (Theragran) 1 tab PO DAILY [facility] Last Admin: 08/20/17 09:08 Dose: 1 tab Ondansetron HCl (Zofran) 4 mg IVP Q6H PRN PRN Reason: Nausea/Vomiting Sodium Chloride (Flush - Normal Saline) 10 ml IVF Q12HR [facility] Last Admin: 08/20/17 09:08 Dose: 10 ml Sodium Chloride (Flush - Normal Saline) 10 ml IVF PRN PRN PRN Reason: Saline Flush
[2017-08-21 04:39] LABS: #Eosinphils 0.5 thou/uL (0.0-0.7); #Lymphocytes 1.7 thou/uL (1.20-3.40); #Monocytes 0.8 thou/uL (0.11-0.59); #Neutrophils 4.3 thou/uL (1.40-6.50); %Basophils 0.5 % (0.0-1.0); %Eosinophils 6.9 % (0.0-10.0); %Monocytes 10.7 % (0.0-10.0); Hematocrit 37.8 % (42.0-52.0); Mean Platelet Volume 6.8 fL (7.4-10.4); Red Blood Cell (RBC) Count 3.64 mill/uL (4.70-6.10); White Blood Cell (WBC) Count 7.3 thou/uL (4.8-10.8)
[2017-08-21 04:55] LABS: ALT (SGPT) 20 U/L (8-55); AST (SGOT) 29 U/L (5-34); Alkaline Phosphatase 108 U/L (40-150); Anion Gap 13 mmol/L (10-20); BUN (Urea Nitrogen) 46 mg/dL (8.4-25.7); Bilirubin, Total 0.6 mg/dL (0.2-1.2); Calc. Creatinine Clearance 76 mL/min (70-130); Calcium 9.3 mg/dL (7.8-10.44); Carbon Dioxide 36 mmol/L (23-31); Chloride 91 mmol/L (98-107); Estimated GFR-MDRD 50; Globulin 2.6 g/dL (2.4-3.5); Magnesium 1.6 mg/dL (1.6-2.6); Phosphorus 3.9 mg/dL (2.3-4.7); Protein, Total 5.7 g/dL (5.8-8.1)
[2017-08-21] MEDS: DOPamine 400 MG/D5W 250 ML 250 ML IVPB PRN ×2 (05:43→20:51)
[2017-08-21] MEDS: Furosemide 100 MG/10 ML VIAL SLOW IVP SCH ×2 (05:44→14:14)
--- NOTE | 2017-08-21 09:43 | PRG ---
DATE OF SERVICE: 08/21/2017 SUBJECTIVE: The patient is doing better today and has no complaints. He continues on a low dose do pamine drip. PHYSICAL EXAMINATION: VITAL SIGNS: Temperature is 98.1, pulse 47, respirations 20, O2 sat 96% on 4 liters, blood pressure 137/53. Total intake for 24 hours 1162, output 2875. Weight down 249. HEENT: Remarkable for some rosacea at the end of his nose. NECK: No JVD. LUNGS: He has inspiratory crackles bilaterally, but overall better. CARDIOVASCULAR: S1, S2, slightly bradycardic. ABDOMEN: Soft, nontender. EXTREMITIES: Decreased edema. LABORATORY DATA: Sodium 136, potassium 3.9, chloride 91, CO2 36, creatinine 1.4, BUN 46, albumin 3. 1. White blood cell count 7.3, hematocrit 37.8, platelet count 126. ASSESSMENT: 1. Congestive heart failure - acute on chronic/diastolic. 2. Bradycardia. 3. Acute hypoxic respiratory failure, which is improved. PLAN: 1. Continue BiPAP as needed. 2. Continue diuresis. 3. May end up needing a pacemaker placement.
[2017-08-21] MEDS: Atorvastatin Calcium 10 MG TAB PO SCH (09:57)
[2017-08-21] MEDS: Allopurinol 300 MG TAB PO SCH (09:57)
[2017-08-21] MEDS: Enoxaparin Sodium 120 MG/0.8 ML SYRINGE SC SCH ×2 (09:57→20:49)
[2017-08-21] MEDS: Docusate 100 MG CAP PO SCH ×2 (09:57→20:50)
[2017-08-21] MEDS: Famotidine 20 MG TAB PO SCH ×2 (09:58→20:50)
[2017-08-21] MEDS: levETIRAcetam 500 MG TAB PO SCH ×2 (09:58→20:50)
[2017-08-21] MEDS: Folic Acid 1 MG TAB PO SCH ×2 (09:58→20:50)
[2017-08-21] MEDS: Multivit, Therapeutic 1 TAB PO SCH (09:58)
[2017-08-21] MEDS ORDERED: Ammonium Lactate 12% Lotion 225 GM BOT TOP SCH (12:30)
--- NOTE | 2017-08-21 12:44 | PDOC.PN ---
- Subjective Encounter Start Date: 08/21/17 Encounter Start Time: 12:37 Patient seen and examined. No new complaints. No overnight events - Objective Resuscitation Status: Resuscitation Status FULL:Full Resuscitation MAR Reviewed: Yes Vital Signs & Weight: Vital Signs (12 hours) Temp Pulse Resp BP Pulse Ox 08/21/17 12:00 97.6 F 48 L 20 134/54 L 93 L 08/21/17 08:00 98.1 F 47 L 20 96 08/21/17 07:33 98.1 F 47 L 20 137/53 L 96 08/21/17 02:45 45 L Weight Weight 249 lb 1.957 oz I&O: 08/20/17 08/21/17 08/22/17 07:59 06:59 06:59 Intake Total Output Total Balance Result Diagrams: 08/21/17 04:12 08/21/17 04:11 Additional Labs: Accuchecks 08/21/17 08/21/17 08/20/17 11:55 04:11 20:19 POC Glucose 125 H 104 132 H 08/20/17 18:02 POC Glucose 139 H EKG Reviewed by me: Yes (Tele Afib) Phys Exam - Physical Examination Constitutional: NAD Respiratory: no wheezing, no rhonchi Dec AE at bases Cardiovascular: no rub, irregular Gastrointestinal: soft, non-tender, positive bowel sounds Musculoskeletal: edema present chr alberto stasis Neurological: non-focal, moves all 4 limbs Psychiatric: A&O x 3 Dx/Plan - Plan cont current plan of care IMPRESSION: 1. Acute hypoxic/hypercapnic respiratory failure secondary to congestive heart failure - Off BIPAP 2. Acute on chronic diastolic heart failure - improving 3. Afib with slow vent response - on Dopamine drip 4. Toxic metabolic encephalopathy due to # 1 - improved 5. Bilateral pleural effusion. 6. History of seizure disorder. on Keppra 7. Chronic atrial fibrillation. on Anticoag. Xarelto changed to Lovenox for possible pacemaker. 8. Chronic bilateral lower extremity lymphedema. 9. Chronic venous insufficiency in bilateral lower extremities. 10. Hypertension. 11. Cardiac catheterization last year by Dr. Diaz per patient report. 12. Hyperlipidemia. 13. Chronic kidney disease stage 2. 14. Obesity with a body mass index of 34.7. 15. Macrocytic anemia. 16. Gout. 17. Chronic resp failure on home O2 @3lit 18. Hyperkalemia - resolved. PLAN: * Cont Lasix at 80 mg BID per Cardiology * On Dopamine drip * Consult wound care * AM labs * BETTY eddy in AM * Pulmonary/Cardiology/EP following Review of Systems - Review of Systems Respiratory: negative: Cough, Dry, Shortness of Breath, Hemoptysis, SOB with Excertion, Pleuritic Pain, Sputum, Wheezing Cardiovascular: negative: Chest Pain, Palpitations, Orthopnea, Paroxysmal Noc. Dyspnea, Edema, Light Headedness, Other Gastrointestinal: negative: Nausea, Vomiting, Abdominal Pain, Diarrhea, Constipation, Melena, Hematochezia, Other - Medications/Allergies Allergies/Adverse Reactions: Allergies Allergy/AdvReac Type Severity Reaction Status Date / Time No Known Drug Allergies Allergy Verified 07/15/17 22:23 Medications: Current Medications Acetaminophen (Tylenol) 650 mg PO Q4H PRN PRN Reason: Headache/Fever or Pain Allopurinol (Zyloprim) 300 mg PO DAILY [facility] Last Admin: 08/21/17 09:57 Dose: 300 mg Ammonium Lactate (Laclotion) 0 gm TOP BID [facility] Ammonium Lactate (Laclotion) 0 gm TOP ONE [facility] Stop: 08/21/17 13:00 Aspirin (Aspirin Chewable) 81 mg PO DAILY [facility] Last Admin: 08/21/17 09:57 Dose: 81 mg Atorvastatin Calcium (Lipitor) 10 mg PO DAILY [facility] Last Admin: 08/21/17 09:57 Dose: 10 mg Dextrose/Water (Dextrose 50%) 25 gm SLOW IVP PRN PRN PRN Reason: Hypoglycemia Docusate Sodium (Colace) 100 mg PO BID [facility] Last Admin: 08/21/17 09:57 Dose: 100 mg Enoxaparin Sodium (Lovenox) 110 mg SC 0900,2100 [facility] Last Admin: 08/21/17 09:57 Dose: 110 mg Famotidine (Pepcid) 20 mg PO BID [facility] Last Admin: 08/21/17 09:58 Dose: 20 mg Folic Acid (Folvite) 1 mg PO BID [facility] Last Admin: 08/21/17 09:58 Dose: 1 mg Furosemide (Lasix) 80 mg SLOW IVP 0600,1400 [facility] Last Admin: 08/21/17 05:44 Dose: 80 mg Glucagon (Glucagon) 1 mg IM PRN PRN PRN Reason: Hypoglycemia Guaifenesin/Dextromethorphan (Robitussin Dm) 15 ml PO Q4H PRN PRN Reason: Cough Dextrose/Water (D5w) 1,000 mls @ 0 mls/hr IV .Q0M PRN; As Directed PRN Reason: Hypoglycemia Dopamine HCl/Dextrose (Dopamine/D5w) 250 mls @ 0 mls/hr IVPB INF PRN; Protocol ; As Directed PRN Reason: TO KEEP HR >50 Last Admin: 08/21/17 05:43 Dose: 250 mls Levetiracetam (Keppra) 750 mg PO BID [facility] Last Admin: 08/21/17 09:58 Dose: 750 mg Multivitamins (Theragran) 1 tab PO DAILY [facility] Last Admin: 08/21/17 09:58 Dose: 1 tab Ondansetron HCl (Zofran) 4 mg IVP Q6H PRN PRN Reason: Nausea/Vomiting Sodium Chloride (Flush - Normal Saline) 10 ml IVF Q12HR [facility] Last Admin: 08/21/17 09:58 Dose: Not Given Sodium Chloride (Flush - Normal Saline) 10 ml IVF PRN PRN PRN Reason: Saline Flush
--- NOTE | 2017-08-21 14:18 | RAD ---
PORTABLE AP CHEST: Date: 08/21/17 HISTORY: Follow-up pulmonary edema. COMPARISON: 08/19/17. FINDINGS: The cardiac silhouette remains magnified by projection, but is enlarged. There are bibasilar pleural and parenchymal lung changes with improvement in aeration at each lung base and in the right mid lung zone when compared to the prior study. Findings are likely related to bilateral pleural effusions an d associated atelectasis. Improvement in perihilar interstitial and alveolar opacities may be related to improvement in pulmonary edema. Pulmonary vasculature is within normal limits. IMPRESSION: Interval improvement in pulmonary vascular congestion, as well as pulmonary edema, with improvement i n bilateral pleural effusions, although moderate right and small left pleural effusions persist with associated atelectasis. Continued follow-up to resolution is suggested. POS: NAVYA
[2017-08-21] MEDS: Ammonium Lactate 12% Lotion 225 GM BOT TOP SCH (21:35)
[2017-08-22] MEDS ORDERED: Iopamidol 370 76% 50 ML VIAL FS ONE (04:57)
[2017-08-22] MEDS: Furosemide 100 MG/10 ML VIAL SLOW IVP SCH ×2 (05:32→18:36)
[2017-08-22 05:51] LABS: ALT (SGPT) 23 U/L (8-55); AST (SGOT) 35 U/L (5-34); Alkaline Phosphatase 109 U/L (40-150); Anion Gap 15 mmol/L (10-20); BUN (Urea Nitrogen) 44 mg/dL (8.4-25.7); Bilirubin, Total 0.6 mg/dL (0.2-1.2); Calc. Creatinine Clearance 83 mL/min (70-130); Carbon Dioxide 33 mmol/L (23-31); Chloride 91 mmol/L (98-107); Estimated GFR-MDRD 55; Globulin 2.8 g/dL (2.4-3.5); Magnesium 1.7 mg/dL (1.6-2.6); Phosphorus 4.5 mg/dL (2.3-4.7); Protein, Total 5.8 g/dL (5.8-8.1)
[2017-08-22 06:00] LABS: Band 1 % (5-11); Hematocrit 36.6 % (42.0-52.0); Mean Platelet Volume 7.5 fL (7.4-10.4); Neutrophil 60 % (42-75); White Blood Cell (WBC) Count 6.2 thou/uL (4.8-10.8)
--- NOTE | 2017-08-22 08:23 | PRG ---
DATE OF SERVICE: 08/22/2017 SUBJECTIVE: He is continuing to feel somewhat better. PHYSICAL EXAMINATION: VITAL SIGNS: Temperature 98.1, pulse 50, respirations 20, O2 saturation 94% on 4 liters, blood pres sure 120/37. HEENT: Unremarkable. NECK: No JVD. LUNGS: Clear. CARDIAC: S1, S2, bradycardic. ABDOMEN: Soft. EXTREMITIES: Trace edema. LABORATORY DATA: White blood cell count 6.2, hematocrit 36.6, platelet count 118. Sodium 135, pota ssium 4.2, BUN 44, creatinine 1.2, glucose 98. ASSESSMENT: 1. Congestive heart failure. 2. Acute hypoxic respiratory failure. 3. Bradycardia. PLAN: I believe the pacemaker is planned for later today. We are continuing high flow nasal cannul a. He is continuing diuretics.
[2017-08-22] MEDS: levETIRAcetam 500 MG TAB PO SCH ×2 (08:52→20:10)
[2017-08-22] MEDS: Atorvastatin Calcium 10 MG TAB PO SCH (08:52)
[2017-08-22] MEDS: Multivit, Therapeutic 1 TAB PO SCH (08:53)
[2017-08-22] MEDS: Folic Acid 1 MG TAB PO SCH ×2 (08:53→20:10)
[2017-08-22] MEDS: Famotidine 20 MG TAB PO SCH ×2 (08:53→20:10)
[2017-08-22] MEDS: Docusate 100 MG CAP PO SCH ×2 (08:53→20:09)
[2017-08-22] MEDS: Ammonium Lactate 12% Lotion 225 GM BOT TOP SCH ×2 (08:56→20:11)
[2017-08-22] MEDS: Allopurinol 300 MG TAB PO SCH (08:56)
[2017-08-22] MEDS ORDERED: CEFAZOLIN/Water 2 GM/20 ML SYRINGE ONE (13:58)
[2017-08-22] MEDS ORDERED: PHENYLEPHRINE-NS 100 MCG/ML 10 ML SYRINGE ONE (14:21)
[2017-08-22] MEDS ORDERED: Propofol 500 MG/50 ML VIAL ONE (14:21)
[2017-08-22] MEDS ORDERED: Propofol 200 MG/20 ML VIAL ONE (14:31)
[2017-08-22] MEDS ORDERED: traMADol HCl 50 MG TAB PO PRN (16:39)
[2017-08-22] MEDS ORDERED: diphenhydrAMINE 25 MG CAP PO PRN (16:39)
[2017-08-22] MEDS ORDERED: Bisacodyl 10 MG SUPP PR PRN (16:39)
[2017-08-22] MEDS ORDERED: Temazepam 15 MG CAP PO PRN (16:39)
[2017-08-22] MEDS ORDERED: Bisacodyl 5 MG TAB PO PRN (16:39)
[2017-08-22] MEDS ORDERED: Silver Sulfadiazine 1% Cream 50 GM JAR TOP PRN (16:39)
[2017-08-22] MEDS ORDERED: Ondansetron HCl/PF 4 MG/2 ML Vial IVP PRN (16:39)
[2017-08-22] MEDS ORDERED: Acetaminophen 325 MG TAB PO PRN (16:39)
[2017-08-22] MEDS ORDERED: Nitroglycerin 0.4 MG TAB (25 Tab Bottle) SL PRN (16:39)
[2017-08-22] MEDS ORDERED: Mag-Al 1200 mg/1200 mg/30 ML UDCUP PO PRN (16:39)
[2017-08-22] MEDS ORDERED: Acetaminophen/Codeine 30-300mg Tablet PO PRN ×2 (16:45)
[2017-08-22] MEDS ORDERED: HYDROcodone/Acetaminophen 5/325 mg Tablet PO PRN ×2 (16:45)
[2017-08-22] MEDS: Cephalexin 250 MG CAP PO SCH ×2 (18:36→23:55)
[2017-08-22] MEDS ORDERED: Sodium Chloride 0.65% Nasal 44 ML BOT EA NARE PRN (19:10)
--- NOTE | 2017-08-22 19:10 | PDOC.PN ---
- Subjective Encounter Start Date: 08/22/17 Encounter Start Time: 10:00 Patient seen and examined. No new complaints. No overnight events - Objective Resuscitation Status: Resuscitation Status FULL:Full Resuscitation MAR Reviewed: Yes Vital Signs & Weight: Vital Signs (12 hours) Temp Pulse Resp BP Pulse Ox 08/22/17 18:48 75 144/66 H 08/22/17 17:23 96.9 F L 72 18 157/66 H 93 L 08/22/17 17:15 97.5 F L 75 20 157/66 H 08/22/17 11:20 98.1 F 52 L 20 161/65 H 91 L 08/22/17 08:00 98.1 F 50 L 20 Weight Admit Weight 252 lb 6.868 oz Weight 247 lb 8 oz I&O: 08/21/17 08/22/17 08/23/17 06:59 06:59 06:59 Intake Total 1428.8 592 Output Total 2400 1425 Balance -971.2 -833 Result Diagrams: 08/22/17 04:54 08/22/17 04:54 Additional Labs: Accuchecks 08/22/17 08/22/17 08/21/17 10:43 05:20 20:13 POC Glucose 103 102 129 H EKG Reviewed by me: Yes (Tele SB) Phys Exam - Physical Examination Constitutional: NAD Respiratory: no wheezing, no rhonchi Scat rales at bases Cardiovascular: RRR, no rub Gastrointestinal: soft, positive bowel sounds Musculoskeletal: edema present Neurological: moves all 4 limbs Dx/Plan - Plan cont current plan of care IMPRESSION: 1. Acute hypoxic/hypercapnic respiratory failure secondary to congestive heart failure - Off BIPAP - improving. 2. Acute on chronic diastolic heart failure - improving 3. Afib with slow vent response - on Dopamine drip 4. Toxic metabolic encephalopathy due to # 1 - improved 5. Bilateral pleural effusion. 6. History of seizure disorder. on Keppra 7. Chronic atrial fibrillation. on Anticoag. Xarelto changed to Lovenox for possible pacemaker today 8. Chronic bilateral lower extremity lymphedema/venous stasis 9. Chronic venous insufficiency in bilateral lower extremities. 10. Hypertension. 11. Cardiac catheterization last year by Dr. Diaz per patient report. 12. Hyperlipidemia. 13. Chronic kidney disease stage 2. 14. Obesity with a body mass index of 34.7. 15. Macrocytic anemia. 16. Gout. 17. Chronic resp failure on home O2 @3lit 18. Hyperkalemia - resolved. PLAN: * Pacemaker today * Cont Lasix IV 80 mg BID per Cardiology * On Dopamine drip * Cont wound care * AM labs * DC nunu in AM * Pulmonary/Cardiology/EP following * Add [place] nasal spray * Resume Xarelto after pacemaker Review of Systems - Review of Systems Respiratory: SOB with Excertion. negative: Cough, Dry, Shortness of Breath, Hemoptysis, Pleuritic Pain, Sputum, Wheezing Cardiovascular: Edema. negative: Chest Pain, Palpitations, Orthopnea, Paroxysmal Noc. Dyspnea, Light Headedness, Other Gastrointestinal: negative: Nausea, Vomiting, Abdominal Pain, Diarrhea, Constipation, Melena, Hematochezia, Other - Medications/Allergies Allergies/Adverse Reactions: Allergies Allergy/AdvReac Type Severity Reaction Status Date / Time No Known Drug Allergies Allergy Verified 07/15/17 22:23 Medications: Current Medications Acetaminophen (Tylenol) 650 mg PO Q4H PRN PRN Reason: Mild Pain 1-3 Acetaminophen/Codeine Phosphate (Tylenol #3) 1 tab PO Q4H PRN PRN Reason: Mild Pain (1-3) Acetaminophen/Codeine Phosphate (Tylenol #3) 2 tab PO Q4H PRN PRN Reason: Moderate Pain (4-6) Hydrocodone Bitart/Acetaminophen ([place] 5/325) 1 tab PO Q4H PRN PRN Reason: Mild Pain Hydrocodone Bitart/Acetaminophen ([place] 5/325) 2 tab PO Q4H PRN PRN Reason: For Moderate Pain Al Hydroxide/Mg Hydroxide (Maalox) 15 ml PO Q4H PRN PRN Reason: Heartburn or Indigestion Allopurinol (Zyloprim) 300 mg PO DAILY [facility] Last Admin: 08/22/17 08:56 Dose: 300 mg Ammonium Lactate (Laclotion) 0 gm TOP BID [facility] Last Admin: 08/22/17 08:56 Dose: 225 gm Atorvastatin Calcium (Lipitor) 10 mg PO DAILY [facility] Last Admin: 08/22/17 08:52 Dose: 10 mg Bisacodyl (Dulcolax) 5 mg PO DAILYPRN PRN PRN Reason: CONSTIAPT Bisacodyl (Dulcolax) 10 mg SD DAILYPRN PRN PRN Reason: Constipation Cephalexin (Keflex) 500 mg PO Q6HR [facility] Last Admin: 08/22/17 18:36 Dose: 500 mg Dextrose/Water (Dextrose 50%) 25 gm SLOW IVP PRN PRN PRN Reason: Hypoglycemia Diphenhydramine HCl (Benadryl) 25 mg PO Q6H PRN PRN Reason: Itching Docusate Sodium (Colace) 100 mg PO BID [facility] Last Admin: 08/22/17 08:53 Dose: 100 mg Famotidine (Pepcid) 20 mg PO BID [facility] Last Admin: 08/22/17 08:53 Dose: 20 mg Folic Acid (Folvite) 1 mg PO BID [facility] Last Admin: 08/22/17 08:53 Dose: 1 mg Furosemide (Lasix) 80 mg SLOW IVP 0600,1400 [facility] Last Admin: 08/22/17 18:36 Dose: 80 mg Glucagon (Glucagon) 1 mg IM PRN PRN PRN Reason: Hypoglycemia Guaifenesin/Dextromethorphan (Robitussin Dm) 15 ml PO Q4H PRN PRN Reason: Cough Dextrose/Water (D5w) 1,000 mls @ 0 mls/hr IV .Q0M PRN; As Directed PRN Reason: Hypoglycemia Dopamine HCl/Dextrose (Dopamine/D5w) 250 mls @ 0 mls/hr IVPB INF PRN; Protocol ; As Directed PRN Reason: HR <40, SBP <90 Last Admin: 08/21/17 20:51 Dose: 250 mls Levetiracetam (Keppra) 750 mg PO BID [facility] Last Admin: 08/22/17 08:52 Dose: 750 mg Multivitamins (Theragran) 1 tab PO DAILY [facility] Last Admin: 08/22/17 08:53 Dose: 1 tab Nitroglycerin (Nitrostat) 0.4 mg SL Q5MIN PRN PRN Reason: Chest Pain Ondansetron HCl (Zofran) 4 mg IVP Q6H PRN PRN Reason: Nausea/Vomiting Rivaroxaban (Xarelto) 15 mg PO QPM-WM [facility] Silver Sulfadiazine (Silvadene) 0 gm TOP Q12H PRN PRN Reason: Rash/Topical Irritation Sodium Chloride (Flush - Normal Saline) 10 ml IVF Q12HR [facility] Last Admin: 08/22/17 09:02 Dose: Not Given Sodium Chloride (Flush - Normal Saline) 10 ml IVF PRN PRN PRN Reason: Saline Flush Temazepam (Restoril) 15 mg PO HSPRN PRN PRN Reason: Insomnia Tramadol HCl (Ultram) 50 mg PO Q4H PRN PRN Reason: FOR MODERATE PAIN 4-6
--- NOTE | 2017-08-22 20:02 | PRG ---
DATE OF SERVICE: 08/22/2017 ELECTROPHYSIOLOGY FOLLOWUP NOTE SUBJECTIVE: Mr. Dotson is much more awake and less distress as on Tuesday when I saw him. He is breathing comfortably, lying flat. OBJECTIVE DATA: VITAL SIGNS: Temperature 98.1, respirations 20, heart rate 50, on dopamine, blood pressure 161/65, and temperature 98.1 degrees Fahrenheit. GENERAL: Alert and oriented man, in no apparent distress. NECK: Jugular veins not distended. CHEST: Coarse without crackles. CARDIOVASCULAR: Heart sounds are irregularly irregular and bradycardic. No murmur or gallop. PMI is nonpalpable. ABDOMEN: Benign. Bowel sounds positive. EXTREMITIES: Lower extremities without edema, clubbing or cyanosis. DATABASE: Telemetry strips reveal continued atrial fibrillation with slow ventricular rate. LABORATORY DATA: White count 6.2, hemoglobin 11.3, platelet counts are 118. Sodium 135, potassium 4.2, BUN is 44, creatinine 1.8. Ins and outs were reviewed and revealed approximate balance of 4 li ters for the last 3 days. ASSESSMENT AND PLAN: Mr. Dotson is a 71-year-old man with prior history of chronic atrial fibril lation who has a history of bradycardia. He has presented with diastolic heart failure. We suspect marked bradycardia with his atrial fibrillation might be a contributing factor. I have discussed t he benefits of pacemaker in his condition. Also consideration for biventricular pacing could be mad e even though his LV function is normal. I think this gentleman likely could not afford potential w orsening of his LV systolic function, which can happen with RV pacing only. For this reason, bivent ricular pacing will be considered. Risks and benefits of the procedure have been discussed. His Xa relto is on hold and Lovenox is also on hold this morning. We will schedule him for this afternoon. This was discussed with the patient and his as well as Dr. Garcia. Risks and benefits detailed a nd the family is willing to proceed in agreement with Dr. Garcia.
[2017-08-23 04:36] LABS: BUN (Urea Nitrogen) 42 mg/dL (8.4-25.7); Calc. Creatinine Clearance 93 mL/min (70-130); Calcium 8.8 mg/dL (7.8-10.44); Estimated GFR-MDRD 63; Magnesium 1.2 mg/dL (1.6-2.6)
[2017-08-23 04:45] LABS: Anion Gap 18 mmol/L (10-20); Carbon Dioxide 32 mmol/L (23-31); Chloride 93 mmol/L (98-107)
[2017-08-23] MEDS: Cephalexin 250 MG CAP PO SCH ×3 (05:04→18:17)
[2017-08-23] MEDS: Furosemide 100 MG/10 ML VIAL SLOW IVP SCH ×2 (05:05→14:17)
[2017-08-23] MEDS ORDERED: Magnesium Sulfate 4 GM in Sodium Chloride 0.9% 250 ML 250 ML IVPB SCH (08:30)
[2017-08-23] MEDS: Ammonium Lactate 12% Lotion 225 GM BOT TOP SCH ×2 (08:41→20:50)
[2017-08-23] MEDS: levETIRAcetam 500 MG TAB PO SCH ×2 (08:45→20:49)
[2017-08-23] MEDS: Docusate 100 MG CAP PO SCH ×2 (08:45→20:48)
[2017-08-23] MEDS: Multivit, Therapeutic 1 TAB PO SCH (08:46)
[2017-08-23] MEDS: Famotidine 20 MG TAB PO SCH ×2 (08:46→20:49)
[2017-08-23] MEDS: Atorvastatin Calcium 10 MG TAB PO SCH (08:46)
[2017-08-23] MEDS: Folic Acid 1 MG TAB PO SCH ×2 (08:46→20:49)
[2017-08-23] MEDS: Allopurinol 300 MG TAB PO SCH (08:47)
--- NOTE | 2017-08-23 08:52 | RAD ---
AP CHEST: History: Status post pacemaker insertion. Date: 08-23-17 Comparison: 08-21-17 FINDINGS: AP chest demonstrates placement of an intracardiac pacing device. Cardiomegaly is seen again. Pulmonary vascular congestion is noted. There is blunting of the costophr enic angles bilaterally. IMPRESSION: 1. Placement of intracardiac pacing device. 2. Cardiomegaly, pulmonary vascular congestion and bilateral pleural effusions compatible with conges tive heart failure. 3. Radiographic appearance of the chest is otherwise unchanged. POS: NAVYA
--- NOTE | 2017-08-23 09:31 | PRG ---
DATE OF SERVICE: 08/23/2017 SUBJECTIVE: Patient is doing reasonably well, has pacemaker placed yesterday. PHYSICAL EXAMINATION: VITAL SIGNS: On exam, temperature is 98.0, pulse 70, respirations 20, O2 sat 96% on 4.5 liters, blo od pressure 128/51. HEENT: Unremarkable. NECK: No JVD. CHEST: Clear to auscultation except in the right base where breath sounds are diminished. CARDIAC: S1, S2, paced. His pacemaker pocket looks clean. ABDOMEN: Soft and nontender. EXTREMITIES: Without clubbing or cyanosis. He has trace edema in his lower extremities. LABORATORY DATA: Sodium 139, potassium 4.1, chloride 93, CO2 of 32, BUN 42, creatinine 1.1, glucose 97. His chest x-ray demonstrates continued edema bilaterally, worse on the right than the left. T here is probably a small effusion on the right. ASSESSMENT: 1. Congestive heart failure. 2. Severe hypoxemia secondary to congestive heart failure. 3. Bradycardia, which has been resolved with pacemaker. PLAN: 1. Consult physical therapy. 2. Dopamine has been stopped. 3. Increase activity as tolerated. 4. If hypoxemia improves, he should be able to go out of the IMCU tomorrow.
--- NOTE | 2017-08-23 10:23 | PDOC.CTH ---
Cardiology Progress Note - Subjective Better s/p AIR ROUTE TRAFFIC CONTROLLER-P implant. Respiratory status improving. Remains weak. ROS otherwise negative. - Objective Vital Signs Temp Pulse Resp BP Pulse Ox 08/23/17 08:00 98.6 F 70 24 H 173/71 H 90 L 08/23/17 04:00 98.0 F 70 20 128/51 L 96 08/23/17 00:00 97.8 F 70 18 121/57 L 94 L Admit Weight 252 lb 6.868 oz Weight 231 lb 3.2 oz 08/22/17 08/23/17 08/24/17 06:59 06:59 06:59 Intake Total 1428.8 642 Output Total 2400 3540 Balance -971.2 -2898 - Physical Examination General/Neuro: NAD Neck: carotid US brisk, no JVD present Lungs: CTA, unlabored respirations Heart: PMI normal, other: (irregular) Abdomen: no HSM, NT/ND, soft Extremities: other: (2+ pulses, minimal edema) Other PE findings: Neuro: no focal motor defs - Telemetry Telemetry Rhythm: AF with CVR - Labs Result Diagrams: 08/22/17 04:54 08/23/17 03:46 Troponin/CKMB CK-MB (CK-2) 4.3 ng/mL (0-6.6) 08/19/17 15:26 Troponin I 0.019 ng/mL (< 0.028) 08/19/17 15:26 - Assessment/Plan 1. AF with SSS/bradycardia: AIR ROUTE TRAFFIC CONTROLLER-P implant yesterday. Doing well. 2. CHF, acute/chronic: improved. Monitor fluid balance. Continue gentle diuresis. 3. HTN: controlled. Continue to monitor. Titrate meds as indicated. 4. deconditioning: PT/OT ordered.
[2017-08-23] MEDS: Rivaroxaban 15 MG TAB PO SCH (16:03)
--- NOTE | 2017-08-23 20:20 | PDOC.PN ---
- Subjective Encounter Start Date: 08/23/17 Encounter Start Time: 09:00 Patient seen and examined. No new complaints. No overnight events - Objective Resuscitation Status: Resuscitation Status FULL:Full Resuscitation MAR Reviewed: Yes Vital Signs & Weight: Vital Signs (12 hours) Temp Pulse Resp BP Pulse Ox 08/23/17 19:40 98.3 F 70 18 89 L 08/23/17 19:28 98.3 F 70 18 145/46 H 93 L 08/23/17 16:00 97.4 F L 70 20 161/76 H 87 L 08/23/17 14:28 72 165/69 H 08/23/17 11:44 98.4 F 70 20 158/62 H 94 L 08/23/17 08:40 98.6 F 70 24 H Weight Admit Weight 252 lb 6.868 oz Weight 231 lb 3.2 oz I&O: 08/22/17 08/23/17 08/24/17 06:59 06:59 06:59 Intake Total 1428.8 642 1168 Output Total 2400 3540 950 Balance -971.2 -2898 218 Result Diagrams: 08/24/17 16:12 08/24/17 04:28 EKG Reviewed by me: Yes (Tele paced) Phys Exam - Physical Examination Constitutional: NAD Respiratory: no rales, no rhonchi Dec AE at bases Cardiovascular: RRR, no rub Gastrointestinal: soft, non-tender, positive bowel sounds Musculoskeletal: edema present Neurological: moves all 4 limbs Dx/Plan - Plan IMPRESSION: 1. Acute hypoxic/hypercapnic respiratory failure secondary to congestive heart failure - Off BIPAP - improving. 2. Acute on chronic diastolic heart failure - improving 3. Afib with slow vent response - off Dopamine drip, s/p CUTTER HELPER-P 4. Toxic metabolic encephalopathy due to # 1 - improved 5. Bilateral pleural effusion. due to # 2 6. History of seizure disorder. on Keppra 7. Chronic atrial fibrillation. on Anticoag. 8. Chronic bilateral lower extremity lymphedema/venous stasis 9. Chronic venous insufficiency in bilateral lower extremities. 10. Hypertension. 11. Cardiac catheterization last year by Dr. Diaz per patient report. 12. Hyperlipidemia. 13. Chronic kidney disease stage 2. 14. Obesity with a body mass index of 34.7. 15. Macrocytic anemia. 16. Gout. 17. Chronic resp failure on home O2 @3lit 18. Hyperkalemia - resolved. PLAN: * s/p Pacemaker * Cont Lasix * Off Dopamine drip * Cont wound care * AM labs * Pulmonary/Cardiology/EP following * Cont to monitor Review of Systems - Review of Systems Respiratory: negative: Cough, Dry, Shortness of Breath, Hemoptysis, SOB with Excertion, Pleuritic Pain, Sputum, Wheezing Cardiovascular: negative: Chest Pain, Palpitations, Orthopnea, Paroxysmal Noc. Dyspnea, Edema, Light Headedness, Other - Medications/Allergies Allergies/Adverse Reactions: Allergies Allergy/AdvReac Type Severity Reaction Status Date / Time No Known Drug Allergies Allergy Verified 07/15/17 22:23 Medications: Current Medications Acetaminophen (Tylenol) 650 mg PO Q4H PRN PRN Reason: Mild Pain 1-3 Acetaminophen/Codeine Phosphate (Tylenol #3) 1 tab PO Q4H PRN PRN Reason: Mild Pain (1-3) Acetaminophen/Codeine Phosphate (Tylenol #3) 2 tab PO Q4H PRN PRN Reason: Moderate Pain (4-6) Hydrocodone Bitart/Acetaminophen ([place] 5/325) 1 tab PO Q4H PRN PRN Reason: Mild Pain Hydrocodone Bitart/Acetaminophen ([place] 5/325) 2 tab PO Q4H PRN PRN Reason: For Moderate Pain Al Hydroxide/Mg Hydroxide (Maalox) 15 ml PO Q4H PRN PRN Reason: Heartburn or Indigestion Allopurinol (Zyloprim) 300 mg PO DAILY [facility] Last Admin: 08/23/17 08:47 Dose: 300 mg Ammonium Lactate (Laclotion) 0 gm TOP BID [facility] Last Admin: 08/23/17 08:41 Dose: 225 gm Atorvastatin Calcium (Lipitor) 10 mg PO DAILY [facility] [place] Last Admin: 08/23/17 08:46 Dose: 10 mg Bisacodyl (Dulcolax) 5 mg PO DAILYPRN PRN PRN Reason: CONSTIAPT Bisacodyl (Dulcolax) 10 mg [place] DAILYPRN PRN PRN Reason: Constipation Cephalexin (Keflex) 500 mg PO Q6HR [facility] Last Admin: 08/23/17 18:17 Dose: 500 mg Dextrose/Water (Dextrose 50%) 25 gm SLOW IVP PRN PRN PRN Reason: Hypoglycemia Diphenhydramine HCl (Benadryl) 25 mg PO Q6H PRN PRN Reason: Itching Docusate Sodium (Colace) 100 mg PO BID [facility] Last Admin: 08/23/17 08:45 Dose: Not Given Famotidine (Pepcid) 20 mg PO BID [facility] Last Admin: 08/23/17 08:46 Dose: 20 mg Folic Acid (Folvite) 1 mg PO BID [facility] Last Admin: 08/23/17 08:46 Dose: 1 mg Furosemide (Lasix) 80 mg SLOW IVP 0600,1400 [facility] Last Admin: 08/23/17 14:17 Dose: 80 mg Glucagon (Glucagon) 1 mg IM PRN PRN PRN Reason: Hypoglycemia Guaifenesin/Dextromethorphan (Robitussin Dm) 15 ml PO Q4H PRN PRN Reason: Cough Dextrose/Water (D5w) 1,000 mls @ 0 mls/hr IV .Q0M PRN; As Directed PRN Reason: Hypoglycemia Levetiracetam (Keppra) 750 mg PO BID [facility] Last Admin: 08/23/17 08:45 Dose: 750 mg Multivitamins (Theragran) 1 tab PO DAILY [facility] Last Admin: 08/23/17 08:46 Dose: 1 tab Nitroglycerin (Nitrostat) 0.4 mg SL Q5MIN PRN PRN Reason: Chest Pain Ondansetron HCl (Zofran) 4 mg IVP Q6H PRN PRN Reason: Nausea/Vomiting Rivaroxaban (Xarelto) 15 mg PO QPM-WM [facility] Last Admin: 08/23/17 16:03 Dose: 15 mg Silver Sulfadiazine (Silvadene) 0 gm TOP Q12H PRN PRN Reason: Rash/Topical Irritation Sodium Chloride (Flush - Normal Saline) 10 ml IVF Q12HR [facility] Last Admin: 08/23/17 08:44 Dose: 10 ml Sodium Chloride (Flush - Normal Saline) 10 ml IVF PRN PRN PRN Reason: Saline Flush Sodium Chloride ([place] Nasal [place] 0.65%) 0 ml EA NARE TID PRN PRN Reason: Nasal Congestion Temazepam (Restoril) 15 mg PO HSPRN PRN PRN Reason: Insomnia Tramadol HCl (Ultram) 50 mg PO Q4H PRN PRN Reason: FOR MODERATE PAIN 4-6
--- NOTE | 2017-08-23 22:50 | PRG ---
DATE OF SERVICE: 08/23/2017 ELECTROPHYSIOLOGY FOLLOWUP NOTE SUBJECTIVE: Mr. Dotson seems to be doing somewhat better today, one day post-pacemaker implant, he has had no PND or orthopnea, able to lay down more than yesterday, especially on the right. OBJECTIVE DATA: VITAL SIGNS: Blood pressure is 165/69, heart rate 72, respirations 20 and temperature 98.4 degrees Fahrenheit. Ins and outs reveal -2.8 liters of diuresis overnight for the last 24 hours. GENERAL: This is an alert and oriented man in no apparent distress. NECK: Supple. Jugular veins still distended. CHEST: Coarse without crackles. CARDIOVASCULAR: Heart sounds are regular to rate and rhythm. No gallop is appreciated. The pacema ker insertion site is with mild swelling, but no significant hematoma noted. ABDOMEN: Benign. Bowel sounds positive. EXTREMITIES: Lower extremities with 1+ bilateral edema. DATA BASE: Chest x-ray shows congestion with blunting of the costophrenic angles, pacemaker in adeq uate position. No pneumothorax. Interrogation of his device reveals a [employer] Quadra Allure biventricular pacemaker with ba ttery voltage as beginning of life said to be 6 years longevity. Capture is 0.5 volts at 0.4 millis econds, LV 1 at 0.75 with 0.4, LV 2 at 0.4 milliseconds. Sensing 5.7 millivolts, impedance 45 0 and 390 ohms respectively. Atrial lead is not implanted. No ventricular episodes are seen. ASSESSMENT AND PLAN: Mr. Dotson is a 71-year-old man with history of severe diastolic heart fail ure with repeated admissions. He is admitted again with a diastolic heart failure and also noted to have severe decreased heart rates. This was in the setting of atrial fibrillation. He underwent p acemaker placement to avoid worsening left ventricular systolic function. He decided to put in a bi ventricular pacemaker. He tolerated the procedure overnight and continues to diurese well, symptoma tically improving. We will resume his Xarelto today. He needs to be monitored for bleeding o n the pacemaker site. Routine post-pacemaker antibiotic and follow up is advised. We will follow w ith you as an outpatient.
[2017-08-24] MEDS: Cephalexin 250 MG CAP PO SCH ×4 (00:45→17:22)
[2017-08-24 05:15] LABS: BUN (Urea Nitrogen) 38 mg/dL (8.4-25.7); Calc. Creatinine Clearance 82 mL/min (70-130); Calcium 8.8 mg/dL (7.8-10.44); Estimated GFR-MDRD 59
[2017-08-24 05:24] LABS: Anion Gap 16 mmol/L (10-20); Carbon Dioxide 38 mmol/L (23-31); Chloride 90 mmol/L (98-107)
[2017-08-24 05:27] LABS: #Eosinphils 0.6 thou/uL (0.0-0.7); #Lymphocytes 0.9 thou/uL (1.20-3.40); #Monocytes 0.8 thou/uL (0.11-0.59); #Neutrophils 3.7 thou/uL (1.40-6.50); %Basophils 0.4 % (0.0-1.0); %Eosinophils 9.4 % (0.0-10.0); %Lymphocytes 14.8 % (21.0-51.0); %Monocytes 13.2 % (0.0-10.0); Hematocrit 33.4 % (42.0-52.0); Mean Platelet Volume 6.8 fL (7.4-10.4); Red Blood Cell (RBC) Count 3.13 mill/uL (4.70-6.10); White Blood Cell (WBC) Count 5.9 thou/uL (4.8-10.8)
[2017-08-24] MEDS: Furosemide 100 MG/10 ML VIAL SLOW IVP SCH (06:12)
[2017-08-24] MEDS: Docusate 100 MG CAP PO SCH ×2 (09:13→20:26)
[2017-08-24] MEDS: Multivit, Therapeutic 1 TAB PO SCH (09:13)
[2017-08-24] MEDS: levETIRAcetam 500 MG TAB PO SCH ×2 (09:13→20:26)
[2017-08-24] MEDS: Famotidine 20 MG TAB PO SCH ×2 (09:14→20:26)
[2017-08-24] MEDS: Atorvastatin Calcium 10 MG TAB PO SCH (09:14)
[2017-08-24] MEDS: Ammonium Lactate 12% Lotion 225 GM BOT TOP SCH ×2 (09:14→20:28)
[2017-08-24] MEDS: Allopurinol 300 MG TAB PO SCH (09:14)
[2017-08-24] MEDS: Folic Acid 1 MG TAB PO SCH ×2 (09:14→20:26)
--- NOTE | 2017-08-24 09:46 | PDOC.CTH ---
Cardiology Progress Note - Subjective Large hematoma developed at pacer site this morning. Tender to touch. Pulses intact. No loss of sensation reported. Edges demarcated with marker. Otherwise stable. No orthopnea. ROS otherwise negative. - Objective Vital Signs Temp Pulse Resp BP Pulse Ox 08/24/17 07:39 98.4 F 70 20 146/78 H 95 08/24/17 04:00 98.5 F 70 18 160/61 H 93 L 08/24/17 03:38 89 L 08/24/17 00:00 98.2 F 73 20 175/80 H 92 L Admit Weight 252 lb 6.868 oz Weight 231 lb 9.6 oz 08/23/17 08/24/17 08/25/17 06:59 06:59 06:59 Intake Total 642 1418 Output Total 4901 5305 Balance -7462 -347 - Physical Examination General/Neuro: alert & oriented x3, NAD Neck: carotid US brisk, no JVD present Lungs: CTA, unlabored respirations Heart: PMI normal, other: (irregular) Abdomen: no HSM, NT/ND, soft Extremities: other: (2+ pulses, no edema) Other PE findings: Neuro: no focal motor defs; large hematoma at pacer site - Telemetry Telemetry Rhythm: AF with CVR - Labs Result Diagrams: 08/24/17 04:28 08/24/17 04:28 Troponin/CKMB CK-MB (CK-2) 4.3 ng/mL (0-6.6) 08/19/17 15:26 Troponin I 0.019 ng/mL (< 0.028) 08/19/17 15:26 - Assessment/Plan 1. AF with SSS/bradycardia: FRONT COUNTER CLERK-P implant yesterday. Stable. New hematoma noted at pacer site. Xarelto held until Dr. Calvin can examine. May need evacuation. Pressure dressing applied. Resume Xarelto per recommendations from EP. I will see him in outpatient setting next week. 2. CHF, acute/chronic: improved. Monitor fluid balance. Continue gentle diuresis. 3. HTN: controlled. Continue to monitor. Titrate meds as indicated. 4. deconditioning: PT/OT ordered.
[2017-08-24] MEDS: Rivaroxaban 15 MG TAB PO SCH (11:11)
--- NOTE | 2017-08-24 12:17 | PRG ---
DATE OF SERVICE: 08/24/2017 SERVICE: Pulmonary Medicine INTERVAL HISTORY: The patient is doing great from a respiratory standpoint. He is breathing comfortably. He denies any chest discomfort. He got his pacemaker placed yesterday. This morning, he has a fairly large hematoma over the left shoulder. Otherwise, outside of the pain at that location, he has no specific complaints. There were no overnight events. PHYSICAL EXAMINATION: VITAL SIGNS: Afebrile, pulse 70, blood pressure 146/78, respirations 20, saturation 95% on 4 liters nasal cannula. GENERAL: The patient is awake, alert, in no apparent distress. LUNGS: Excellent air entry. There is no prolonged expiratory phase. Dependent crackles are present. No wheezing or rhonchi. HEART: Normal rate, regular. ABDOMEN: Soft, nontender, nondistended. Bowel sounds positive. MUSCULOSKELETAL: No cyanosis or clubbing. There is trace to 1+ pitting in the bilateral lower extremities with findings consistent with chronic stasis. GENITOURINARY: No Col[place]res. NEUROLOGIC: Grossly nonfocal. LABORATORY DATA: WBC 5.9, hemoglobin 10.4, platelets 114,000. Basic metabolic profile is essentially unremarkable except for creatinine of 1.21, bicarbonate is 38 and has jumped up to this level today. Blood cultures x2 are unremarkable. ASSESSMENT: 1. Bradycardia. 2. Acute blood loss anemia. 3. Obstructive sleep apnea. 4. Status post pacemaker placement. 5. Acute hypoxic respiratory failure secondary to volume overload. 6. Heart failure secondary to bradycardia, resolved. PLAN: We will continue supportive care. I do believe that his intervascular space is likely dry at this time given his bump in bicarbonate. As such, we can back off on the Lasix. I will leave him in the ICU for an additional 24 hours. Xarelto will be interrupted and we will repeat a hemoglobin this afternoon. Pulmonary Critical Care will continue to follow while he remains in this location. DARRIN
[2017-08-24 13:56] VITALS: BMI 32.3
[2017-08-24 16:22] LABS: Hematocrit 32.4 % (42.0-52.0)
--- NOTE | 2017-08-24 17:38 | PRG ---
DATE OF SERVICE: 08/24/2017 ELECTROPHYSIOLOGY FOLLOWUP NOTE SUBJECTIVE: Mr. Dotson is a 71-year-old man (00:20). OBJECTIVE: VITAL SIGNS: Blood pressure is 143/63, heart rate /normla range, . GENERAL: Alert and oriented man in no apparent distress. NECK: Supple. Jugular veins not distended. CHEST: Coarse. ABDOMEN: Benign. Bowel sounds positive. EXTREMITIES: Lower extremities without edema, clubbing, or cyanosis. DATABASE: The telemetry strips reveal controlled ventricular pacing. LABORATORY DATA: Sodium 140, potassium 3.8, BUN 38, creatinine 1.2. White blood cell count is 5.9, hemoglobin 10.4, and platelet count is 114. ASSESSMENT AND PLAN: Mr. Juan Dotson is a 71-year-old male with a history of atrial fibrillation with slow ventricular response. We placed a BiV pacemaker yesterday Plan at this point: routine post PPM care, resume Xarelto. We will continue to follow with you. DARRIN
--- NOTE | 2017-08-24 17:46 | PDOC.PN ---
- Subjective Encounter Start Date: 08/24/17 Encounter Start Time: 10:00 Patient seen and examined. No new complaints. No overnight events. Hematoma over the pacemaker site - Xarelto on hold. - Objective Resuscitation Status: Resuscitation Status FULL:Full Resuscitation MAR Reviewed: Yes Vital Signs & Weight: Vital Signs (12 hours) Temp Pulse Pulse Pulse Resp BP BP 08/24/17 15:58 97.7 F 70 18 08/24/17 13:24 109 H 79 169/93 H 139/62 08/24/17 11:53 97.4 F L 72 20 08/24/17 08:00 98.4 F 70 20 08/24/17 07:39 98.4 F 70 20 BP Pulse Ox Pulse Ox 08/24/17 15:58 145/63 H 97 08/24/17 13:24 94 L 08/24/17 11:53 146/63 H 92 L 08/24/17 08:00 08/24/17 07:39 146/78 H 95 Weight Admit Weight 252 lb 6.868 oz Weight 231 lb 9.6 oz I&O: 08/23/17 08/24/17 08/25/17 06:59 06:59 06:59 Intake Total 642 1418 Output Total 3540 1765 Balance -2898 -347 Result Diagrams: 08/24/17 16:12 08/24/17 04:28 EKG Reviewed by me: Yes (Tele paced.) Phys Exam - Physical Examination Constitutional: NAD Respiratory: no wheezing, no rhonchi hematoma over the pacemaker Cardiovascular: RRR, no rub Gastrointestinal: soft, non-tender, positive bowel sounds Musculoskeletal: edema present Neurological: non-focal, moves all 4 limbs Dx/Plan - Plan DVT proph w/SCDs IMPRESSION: 1. Acute hypoxic/hypercapnic respiratory failure secondary to congestive heart failure - Off BIPAP - improving. 2. Acute on chronic diastolic heart failure - improving 3. Afib with slow vent response - off Dopamine drip, s/p PECAN MALLOW DIPPER-P 4. Toxic metabolic encephalopathy due to # 1 - improved 5. Bilateral pleural effusion. due to # 2 6. History of seizure disorder. on Keppra 7. Chronic atrial fibrillation. on Anticoag. 8. Chronic bilateral lower extremity lymphedema/venous stasis 9. Chronic venous insufficiency in bilateral lower extremities. 10. Hypertension. 11. Cardiac catheterization last year by Dr. Diaz per patient report. 12. Hyperlipidemia. 13. Chronic kidney disease stage 2. 14. Obesity with a body mass index of 34.7. 15. Macrocytic anemia. 16. Gout. 17. Chronic resp failure on home O2 @3lit 18. Hyperkalemia - resolved. PLAN: * Cont to monitor * s/p Pacemaker - Xarelto on hold due to hematoma * Cont Lasix at low dose due to contraction alkalosis * Cont wound care * AM labs * Pulmonary/Cardiology/EP following * Review of Systems - Review of Systems Respiratory: negative: Cough, Dry, Shortness of Breath, Hemoptysis, SOB with Excertion, Pleuritic Pain, Sputum, Wheezing Cardiovascular: negative: Chest Pain, Palpitations, Orthopnea, Paroxysmal Noc. Dyspnea, Edema, Light Headedness, Other Gastrointestinal: negative: Nausea, Vomiting, Abdominal Pain, Diarrhea, Constipation, Melena, Hematochezia, Other - Medications/Allergies Allergies/Adverse Reactions: Allergies Allergy/AdvReac Type Severity Reaction Status Date / Time No Known Drug Allergies Allergy Verified 07/15/17 22:23 Medications: Current Medications Acetaminophen (Tylenol) 650 mg PO Q4H PRN PRN Reason: Mild Pain 1-3 Acetaminophen/Codeine Phosphate (Tylenol #3) 1 tab PO Q4H PRN PRN Reason: Mild Pain (1-3) Acetaminophen/Codeine Phosphate (Tylenol #3) 2 tab PO Q4H PRN PRN Reason: Moderate Pain (4-6) Hydrocodone Bitart/Acetaminophen ([place] 5/325) 1 tab PO Q4H PRN PRN Reason: Mild Pain Hydrocodone Bitart/Acetaminophen ([place] 5/325) 2 tab PO Q4H PRN PRN Reason: For Moderate Pain Last Admin: 08/24/17 10:47 Dose: 2 tab Al Hydroxide/Mg Hydroxide (Maalox) 15 ml PO Q4H PRN PRN Reason: Heartburn or Indigestion Allopurinol (Zyloprim) 300 mg PO DAILY [facility] Last Admin: 08/24/17 09:14 Dose: 300 mg Ammonium Lactate (Laclotion) 0 gm TOP BID [facility] Last Admin: 08/24/17 09:14 Dose: 225 gm Atorvastatin Calcium (Lipitor) 10 mg PO DAILY [facility] Last Admin: 08/24/17 09:14 Dose: 10 mg Bisacodyl (Dulcolax) 5 mg PO DAILYPRN PRN PRN Reason: CONSTIAPT Bisacodyl (Dulcolax) 10 mg [place] DAILYPRN PRN PRN Reason: Constipation Cephalexin (Keflex) 500 mg PO Q6HR [facility] Last Admin: 08/24/17 17:22 Dose: 500 mg Dextrose/Water (Dextrose 50%) 25 gm SLOW IVP PRN PRN PRN Reason: Hypoglycemia Diphenhydramine HCl (Benadryl) 25 mg PO Q6H PRN PRN Reason: Itching Docusate Sodium (Colace) 100 mg PO BID [facility] Last Admin: 08/24/17 09:13 Dose: 100 mg Famotidine (Pepcid) 20 mg PO BID [facility] Last Admin: 08/24/17 09:14 Dose: 20 mg Folic Acid (Folvite) 1 mg PO BID [facility] Last Admin: 08/24/17 09:14 Dose: 1 mg Furosemide (Lasix) 40 mg SLOW IVP 0900 [facility] Glucagon (Glucagon) 1 mg IM PRN PRN PRN Reason: Hypoglycemia Guaifenesin/Dextromethorphan (Robitussin Dm) 15 ml PO Q4H PRN PRN Reason: Cough Dextrose/Water (D5w) 1,000 mls @ 0 mls/hr IV .Q0M PRN; As Directed PRN Reason: Hypoglycemia Levetiracetam (Keppra) 750 mg PO BID [facility] Last Admin: 08/24/17 09:13 Dose: 750 mg Multivitamins (Theragran) 1 tab PO DAILY [facility] Last Admin: 08/24/17 09:13 Dose: 1 tab Nitroglycerin (Nitrostat) 0.4 mg SL Q5MIN PRN PRN Reason: Chest Pain Ondansetron HCl (Zofran) 4 mg IVP Q6H PRN PRN Reason: Nausea/Vomiting Rivaroxaban (Xarelto) 15 mg PO QPM-WM [facility] Last Admin: 08/24/17 11:11 Dose: Not Given Silver Sulfadiazine (Silvadene) 0 gm TOP Q12H PRN PRN Reason: Rash/Topical Irritation Sodium Chloride (Flush - Normal Saline) 10 ml IVF Q12HR [facility] Last Admin: 08/24/17 09:14 Dose: 10 ml Sodium Chloride (Flush - Normal Saline) 10 ml IVF PRN PRN PRN Reason: Saline Flush Sodium Chloride ([place] Nasal [place] 0.65%) 0 ml EA NARE TID PRN PRN Reason: Nasal Congestion Temazepam (Restoril) 15 mg PO HSPRN PRN PRN Reason: Insomnia Tramadol HCl (Ultram) 50 mg PO Q4H PRN PRN Reason: FOR MODERATE PAIN 4-6
[2017-08-25] MEDS: Cephalexin 250 MG CAP PO SCH ×4 (00:39→17:55)
[2017-08-25 05:03] LABS: #Eosinphils 0.6 thou/uL (0.0-0.7); #Monocytes 0.7 thou/uL (0.11-0.59); #Neutrophils 3.2 thou/uL (1.40-6.50); %Basophils 0.7 % (0.0-1.0); %Eosinophils 11.6 % (0.0-10.0); %Lymphocytes 18.4 % (21.0-51.0); %Monocytes 11.8 % (0.0-10.0); Hematocrit 31.7 % (42.0-52.0); Red Blood Cell (RBC) Count 2.95 mill/uL (4.70-6.10); White Blood Cell (WBC) Count 5.5 thou/uL (4.8-10.8)
[2017-08-25 05:31] LABS: BUN (Urea Nitrogen) 38 mg/dL (8.4-25.7); Calc. Creatinine Clearance 89 mL/min (70-130); Calcium 9.2 mg/dL (7.8-10.44); Estimated GFR-MDRD 64; Magnesium 1.7 mg/dL (1.6-2.6)
[2017-08-25 05:43] LABS: Anion Gap 13 mmol/L (10-20); Chloride 87 mmol/L (98-107)
[2017-08-25 05:48] LABS: Carbon Dioxide 41 mmol/L (23-31)
[2017-08-25] MEDS ORDERED: Furosemide 40 MG/4 ML VIAL SLOW IVP SCH (09:00)
[2017-08-25] MEDS: Allopurinol 300 MG TAB PO SCH (09:46)
[2017-08-25] MEDS: Famotidine 20 MG TAB PO SCH ×2 (09:48→21:01)
[2017-08-25] MEDS: Multivit, Therapeutic 1 TAB PO SCH (09:48)
[2017-08-25] MEDS: Atorvastatin Calcium 10 MG TAB PO SCH (09:48)
[2017-08-25] MEDS: levETIRAcetam 500 MG TAB PO SCH ×2 (09:48→21:00)
[2017-08-25] MEDS: Furosemide 40 MG TAB PO SCH (09:48)
[2017-08-25] MEDS: Docusate 100 MG CAP PO SCH ×2 (09:48→21:01)
[2017-08-25] MEDS: Folic Acid 1 MG TAB PO SCH ×2 (09:48→21:01)
[2017-08-25] MEDS: Ammonium Lactate 12% Lotion 225 GM BOT TOP SCH ×2 (09:51→21:02)
--- NOTE | 2017-08-25 10:40 | PDOC.PN ---
- Subjective Encounter Start Date: 08/25/17 Encounter Start Time: 10:36 Patient seen and examined. No new complaints. No overnight events. No CP. - Objective Resuscitation Status: Resuscitation Status FULL:Full Resuscitation MAR Reviewed: Yes Vital Signs & Weight: Vital Signs (12 hours) Temp Pulse Resp BP Pulse Ox 08/25/17 07:03 98.5 F 70 20 135/57 L 88 L 08/25/17 04:00 97.8 F 71 18 131/64 96 08/25/17 00:00 97.6 F 70 18 117/55 L 95 Weight Admit Weight 252 lb 6.868 oz Weight 233 lb 3 oz I&O: 08/24/17 08/25/17 08/26/17 06:59 06:59 06:59 Intake Total 1418 1090 Output Total 1765 900 Balance -347 190 Result Diagrams: 08/25/17 03:58 08/25/17 03:58 EKG Reviewed by me: Yes (Tele paced) Phys Exam - Physical Examination Constitutional: NAD Respiratory: no wheezing, no rhonchi Dec AE at bases Cardiovascular: RRR, no rub Gastrointestinal: soft, non-tender, positive bowel sounds Musculoskeletal: edema present (improving.) Neurological: moves all 4 limbs Dx/Plan - Plan IMPRESSION: 1. Acute hypoxic/hypercapnic respiratory failure due to congestive heart failure - Off BIPAP - improving. 2. Acute on chronic diastolic heart failure - improving 3. Afib with slow vent response - off Dopamine drip, s/p [employer]-P 4. Toxic metabolic encephalopathy due to # 1 - improved 5. Bilateral pleural effusion. due to # 2 6. History of seizure disorder. on Keppra 7. Chronic atrial fibrillation. on Anticoag. 8. Chronic bilateral lower extremity lymphedema/venous stasis 9. Chronic venous insufficiency in bilateral lower extremities. 10. Hypertension. 11. Cardiac catheterization last year by Dr. Diaz per patient report. 12. Hyperlipidemia. 13. Chronic kidney disease stage 2. 14. Obesity with a body mass index of 34.7. 15. Macrocytic anemia. 16. Gout. 17. Chronic resp failure on home O2 @3lit 18. Hyperkalemia - resolved. 19. Hematoma over the pacemaker site - improved PLAN: * Pulmonary/Cardiology/EP following * Change Lasix to PO due to contraction alkalosis * Cont to monitor * Resume Xarelto today - ok to resume Xarelto today * Cont wound care * AM labs Review of Systems - Review of Systems Respiratory: negative: Cough, Dry, Shortness of Breath, Hemoptysis, SOB with Excertion, Pleuritic Pain, Sputum, Wheezing Cardiovascular: Edema. negative: Chest Pain, Palpitations, Orthopnea, Paroxysmal Noc. Dyspnea, Light Headedness, Other Gastrointestinal: negative: Nausea, Vomiting, Abdominal Pain, Diarrhea, Constipation, Melena, Hematochezia, Other - Medications/Allergies Allergies/Adverse Reactions: Allergies Allergy/AdvReac Type Severity Reaction Status Date / Time No Known Drug Allergies Allergy Verified 07/15/17 22:23 Medications: Current Medications Acetaminophen (Tylenol) 650 mg PO Q4H PRN PRN Reason: Mild Pain 1-3 Acetaminophen/Codeine Phosphate (Tylenol #3) 1 tab PO Q4H PRN PRN Reason: Mild Pain (1-3) Acetaminophen/Codeine Phosphate (Tylenol #3) 2 tab PO Q4H PRN PRN Reason: Moderate Pain (4-6) Hydrocodone Bitart/Acetaminophen ([place] 5/325) 1 tab PO Q4H PRN PRN Reason: Mild Pain Last Admin: 08/24/17 20:27 Dose: 1 tab Hydrocodone Bitart/Acetaminophen ([place] 5/325) 2 tab PO Q4H PRN PRN Reason: For Moderate Pain Last Admin: 08/24/17 10:47 Dose: 2 tab Al Hydroxide/Mg Hydroxide (Maalox) 15 ml PO Q4H PRN PRN Reason: Heartburn or Indigestion Allopurinol (Zyloprim) 300 mg PO DAILY PENDING SALE TO [facility] Last Admin: 08/25/17 09:46 Dose: 300 mg Ammonium Lactate (Laclotion) 0 gm TOP BID PENDING SALE TO [facility] Last Admin: 08/25/17 09:51 Dose: 225 gm Atorvastatin Calcium (Lipitor) 10 mg PO DAILY PENDING SALE TO [facility] Last Admin: 08/25/17 09:48 Dose: 10 mg Bisacodyl (Dulcolax) 5 mg PO DAILYPRN PRN PRN Reason: CONSTIAPT Bisacodyl (Dulcolax) 10 mg UT DAILYPRN PRN PRN Reason: Constipation Cephalexin (Keflex) 500 mg PO Q6HR PENDING SALE TO [facility] Last Admin: 08/25/17 06:01 Dose: 500 mg Dextrose/Water (Dextrose 50%) 25 gm SLOW IVP PRN PRN PRN Reason: Hypoglycemia Diphenhydramine HCl (Benadryl) 25 mg PO Q6H PRN PRN Reason: Itching Docusate Sodium (Colace) 100 mg PO BID PENDING SALE TO [facility] Last Admin: 08/25/17 09:48 Dose: 100 mg Famotidine (Pepcid) 20 mg PO BID PENDING SALE TO [facility] Last Admin: 08/25/17 09:48 Dose: 20 mg Folic Acid (Folvite) 1 mg PO BID PENDING SALE TO [facility] Last Admin: 08/25/17 09:48 Dose: 1 mg Furosemide (Lasix) 40 mg PO DAILY PENDING SALE TO [facility] Last Admin: 08/25/17 09:48 Dose: 40 mg Glucagon (Glucagon) 1 mg IM PRN PRN PRN Reason: Hypoglycemia Guaifenesin/Dextromethorphan (Robitussin Dm) 15 ml PO Q4H PRN PRN Reason: Cough Dextrose/Water (D5w) 1,000 mls @ 0 mls/hr IV .Q0M PRN; As Directed PRN Reason: Hypoglycemia Levetiracetam (Keppra) 750 mg PO BID PENDING SALE TO [facility] Last Admin: 08/25/17 09:48 Dose: 750 mg Multivitamins (Theragran) 1 tab PO DAILY PENDING SALE TO [facility] Last Admin: 08/25/17 09:48 Dose: 1 tab Nitroglycerin (Nitrostat) 0.4 mg SL Q5MIN PRN PRN Reason: Chest Pain Ondansetron HCl (Zofran) 4 mg IVP Q6H PRN PRN Reason: Nausea/Vomiting Rivaroxaban (Xarelto) 15 mg PO QPM[facility] Last Admin: 08/24/17 11:11 Dose: Not Given Silver Sulfadiazine (Silvadene) 0 gm TOP Q12H PRN PRN Reason: Rash/Topical Irritation Sodium Chloride (Flush - Normal Saline) 10 ml IVF Q12HR PENDING SALE TO [facility] Last Admin: 08/25/17 09:48 Dose: 10 ml Sodium Chloride (Flush - Normal Saline) 10 ml IVF PRN PRN PRN Reason: Saline Flush Sodium Chloride ([place] Nasal [place] 0.65%) 0 ml EA NARE TID PRN PRN Reason: Nasal Congestion Temazepam (Restoril) 15 mg PO HSPRN PRN PRN Reason: Insomnia Tramadol HCl (Ultram) 50 mg PO Q4H PRN PRN Reason: FOR MODERATE PAIN 4-6
--- NOTE | 2017-08-25 15:56 | PRG ---
DATE OF SERVICE: 08/25/2017 SERVICE: Pulmonary Medicine. INTERVAL HISTORY: The patient is doing outstanding from a respiratory standpoint. He denies any current fevers, chills, nausea, vomiting, or chest discomfort. Otherwise, he is returning to his usual state of health. There are no specific overnight events. PHYSICAL EXAMINATION: VITAL SIGNS: Afebrile, pulse 68, blood pressure 173/61, respirations 20, saturation 92% on 3 liters nasal cannula. GENERAL: Patient is awake, alert, in no apparent distress. LUNGS: Excellent air entry with no prolonged expiratory phase, wheezing, or rhonchi. There are some dependent crackles present. HEART: Normal rate, regular. ABDOMEN: Soft, nontender, nondistended. Bowel sounds are positive. MUSCULOSKELETAL: No cyanosis or clubbing. No pitting in the bilateral lower extremities. NEUROLOGIC: Grossly nonfocal. LABORATORY DATA: WBC 5.5, hemoglobin 9.7, platelets 125,000. Bicarbonate 41, chloride 87. Basic metabolic profile and magnesium are otherwise unremarkable. Blood cultures x2 are negative to date. ASSESSMENT: 1. Bradycardia, status post pacemaker placement. 2. Acute on chronic hypoxic respiratory failure. 3. Heart failure secondary to bradycardia, improving. 4. Acute blood loss anemia secondary to a hematoma over pacemaker site insertion. PLAN: The patient will be transitioned out of the IMCU to the regular floor. A repeat hemoglobin will be obtained tomorrow morning. Pulmonary will continue to follow while he remains in-house. We will continue this interval of Lasix for the time being, and watch for contraction alkalosis. VIRGINIAD
[2017-08-25] MEDS: Rivaroxaban 15 MG TAB PO SCH (17:55)
[2017-08-26] MEDS: Cephalexin 250 MG CAP PO SCH ×2 (00:53→07:01)
[2017-08-26 04:33] LABS: #Eosinphils 0.6 thou/uL (0.0-0.7); #Lymphocytes 1.1 thou/uL (1.20-3.40); #Monocytes 0.7 thou/uL (0.11-0.59); #Neutrophils 3.2 thou/uL (1.40-6.50); %Basophils 0.8 % (0.0-1.0); %Eosinophils 9.8 % (0.0-10.0); %Monocytes 12.1 % (0.0-10.0); Hematocrit 29.3 % (42.0-52.0); Mean Platelet Volume 6.8 fL (7.4-10.4); Red Blood Cell (RBC) Count 2.76 mill/uL (4.70-6.10); White Blood Cell (WBC) Count 5.7 thou/uL (4.8-10.8)
[2017-08-26 04:50] LABS: BUN (Urea Nitrogen) 40 mg/dL (8.4-25.7); Calc. Creatinine Clearance 92 mL/min (70-130); Calcium 9.3 mg/dL (7.8-10.44); Estimated GFR-MDRD 66
[2017-08-26 04:59] LABS: Anion Gap 17 mmol/L (10-20); Carbon Dioxide 37 mmol/L (23-31); Chloride 88 mmol/L (98-107)
[2017-08-26] MEDS: Famotidine 20 MG TAB PO SCH (09:30)
[2017-08-26] MEDS: Multivit, Therapeutic 1 TAB PO SCH (09:30)
[2017-08-26] MEDS: Folic Acid 1 MG TAB PO SCH (09:31)
[2017-08-26] MEDS: Docusate 100 MG CAP PO SCH (09:31)
[2017-08-26] MEDS: levETIRAcetam 500 MG TAB PO SCH (09:31)
[2017-08-26] MEDS: Furosemide 40 MG TAB PO SCH (09:31)
[2017-08-26] MEDS: Atorvastatin Calcium 10 MG TAB PO SCH (09:31)
[2017-08-26] MEDS: Allopurinol 300 MG TAB PO SCH (09:32)
[2017-08-26] MEDS: Ammonium Lactate 12% Lotion 225 GM BOT TOP SCH (09:32)
--- NOTE | 2017-08-26 09:50 | PRG ---
DATE OF SERVICE: 08/26/2017 SERVICE: Pulmonary Medicine INTERVAL HISTORY: The patient is doing fantastic from a respiratory standpoint. He denies any shor tness of breath, fevers or chills. His energy is much improved. He is working with physical therap Sape at this time and is out of bed. He has no difficulties with walking and does not need much assist ance to get around. Otherwise, it looks as though his bleeding has stopped. His color is also impr ana. PHYSICAL EXAMINATION: VITAL SIGNS: Afebrile, pulse 78, blood pressure 142/65, respirations 18, saturation 93% on 3 liters nasal cannula. GENERAL: The patient is awake and alert, in no apparent distress. LUNGS: Decreased air entry. Minimal dependent crackles are present. HEART: Normal rate, regular. ABDOMEN: Soft, nontender, nondistended, bowel sounds positive. MUSCULOSKELETAL: No cyanosis or clubbing. There is chronic stasis of the bilateral lower extremiti es. Trace to 1+ pitting is also evident. GENITOURINARY: No Colindres. NEUROLOGIC: Grossly nonfocal. LABORATORY DATA: WBC 5.7, hemoglobin 9.2 and roughly stable. Platelets 118,000. Basic metabolic p rofile was essentially unremarkable with a bicarbonate that has improved to 37. ASSESSMENT: 1. Bradycardia, status post pacemaker placement. 2. Acute on chronic hypoxic respiratory failure. 3. Heart failure secondary to bradyarrhythmia. 4. Acute blood loss anemia from hematoma over pacemaker site. PLAN: From my perspective, the patient is stable hemodynamically for discharge from the hospital. He does have home oxygen. I will have him return to clinic to visit with Dr. Britt as previously directed. Pulmonary Critical Care will continue to follow if he remains in the hospital.
[2017-08-26 11:06] VITALS: TEMP 98.3
[2017-08-26 11:52] VITALS: BP 148/71
--- NOTE | 2017-08-26 15:10 | DIS ---
DATE OF ADMISSION: 08/19/2017 DATE OF DISCHARGE: 08/26/2017 DISCHARGE DIAGNOSES: 1. Acute hypoxic and hypercapnic respiratory failure due to acute on chronic diastolic congestive h eart failure. 2. Acute on chronic diastolic congestive heart failure. 3. Atrial fibrillation with slow ventricular response, symptomatic bradycardia/sick sinus syndrome. 4. Toxic and metabolic encephalopathy. 5. Bilateral pleural effusions due to heart failure. 6. History of seizure disorder without acute exacerbation. 7. Chronic atrial fibrillation, on anticoagulation. 8. Chronic bilateral lower extremity lymphedema/venous stasis. 9. Hypertension, essential. 10. Coronary artery disease. 11. Hyperlipidemia. 12. Chronic kidney disease, stage 2. 13. Severe obesity with a BMI of 34.7. 14. Macrocytic anemia. 15. Gout. 16. History of chronic hypoxemic respiratory failure with home oxygen at 3 liters. 17. Hyperkalemia, resolved. 18. Postoperative bleeding with a hematoma over the pacemaker site. 19. Status post new pacemaker placement. CONSULTATIONS: 1. Pulmonary, initially Dr. Heriberto Britt and followed by Dr. Heriberto Britt and Dr. Allen Crowell. 2. Cardiology, Dr. Cordell Saeed, followed by Dr. Juan Garcia. 3. Dr. Choco Calvin from Electrophysiology. PROCEDURES: Permanent pacemaker placement 08/22/2017. HOSPITAL COURSE: Mr. Dotson is a pleasant 71-year-old white male who presented to the emergency department for acute respiratory failure on 08/19/2017. He was seen in the ER, found to have hyperc apnic and hypoxia, pH was 7.29 with a pCO2 of 83. Negative troponin. Chest x-ray showed pulmonary vascular congestion and cardiomegaly. EKG showed atrial fibrillation, but ventricular rate was only 48 beats per minute. We were called for admission. HOSPITAL COURSE: The patient seen and examined, was admitted by Dr. Jeffery to the Intermediate Care Unit. He was started on BiPAP, IV Lasix, EP, Cardiology, Pulmonary were consulted for recomme ndations. The patient was continued on his home medications and was monitored. Overnight, 08/19/2017 to 08/20/2017, the patient was seen by all three consultants. Cardiology felt he had symptomatic bradycardia with heart failure and needed a pacemaker placement. He was seen by Dr. Calvin who recommended to continue diuresis, BiPAP and dopamine as needed for heart rate support. Echo was ordered and cardiac biomarkers were ordered. By 08/20/2017 4:00 a.m., the patient was breathing somewhat better. He had responded well to diures is, mental status was markedly improved, and continued on dopamine drip. By 08/21/2017, patient had no acute overnight events. He was given Lasix 80 mg twice a day per card iology and continued on dopamine drip. Specialists continued to follow and Xarelto was discontinued and the patient was on Lovenox for possible pacemaker placement planned for 08/22/2017. On 08/22/2017, the patient underwent permanent pacemaker placement. He was kept off of Xarelto for the day, had no known intraoperative complications. On 08/23/2017, he began to develop a hematoma at the pacemaker site. Hemoglobin was down slightly. The patient was doing reasonably well and his pain was well controlled. Dopamine was stopped, PT w as consulted and patient was continued in the intermediate care monitoring overnight. On 08/24/2017, patient had no new events. Hematoma over the pacemaker site continued to grow. He w as restarted back on his Xarelto that evening, at a slightly lower dose of 15 mg. He continued on L asix at low dose due to contraction alkalosis and over diuresis. He has continued to be monitored i n IMCU and consultants continued to follow. On 08/25/2017, patient was feeling better. Pain was well controlled. He was changed over to p.o. L asix and was continued on Xarelto. He was cleared for discharge with Cardiology when he was stable, and was watched by the Hospitalist one more night to ensure the hemoglobin did not drop too low. Overnight, he did well, had no leakage. Today, hemoglobin dropped slightly 9.2, but was otherwise stable. He was cleared for discharge and was stable for outpatient followup. The patient was seen and examined on day of discharge. Dischar ge plan and disposition was discussed with the patient face to face at the bedside. DISCHARGE MEDICATIONS: 1. Xarelto 15 mg p.o. daily. Prescription sent for 30 tablets with 2 refills. This is decreased f rom his previous 20 mg. 2. Keppra 750 mg p.o. b.i.d. 3. Claritin 10 mg p.o. daily. 4. Lasix 40 mg p.o. daily. 5. Folic acid 1 mg p.o. b.i.d. 6. Cephalexin 500 mg p.o. q.6 hours for 5 more days. 7. Lipitor 10 mg p.o. at bedtime. 8. Amlodipine 5 mg p.o. daily. 9. Allopurinol 300 mg p.o. daily. FOLLOWUP APPOINTMENTS: 1. Primary care physician who is Dr. Ralph Mosley within a week. 2. Dr. Calvin and Dr. Garcia per Cardiology recommendations. 3. Dr. Crowell or Dr. Britt per pulmonary clinic availability. DISCHARGE DIET: Heart healthy. DIET: Low sodium, no documented fluid restriction. ACTIVITY: Per cardiopulmonary limits. DISCHARGE CONDITION: Stable. DISPOSITION: Being discharged home via private vehicle. No home health care was necessary. INSTRUCTIONS: Return to the emergency department for chest pain, fevers, chills or pacemaker site angélica alvarado. He can also contact his primary care physician, Cardiology, or EP.
--- NOTE | 2017-08-31 21:44 | EKG ---
Test Reason : Blood Pressure : / mmHG Vent. Rate : 070 BPM Atrial Rate : 086 BPM P-R Int : 000 ms QRS Dur : 180 ms QT Int : 482 ms P-R-T Axes : 000 -83 060 degrees QTc Int : 520 ms Ventricular pacemaker Abnormal ECG When compared with ECG of 19-AUG-2017 14:34, (Unconfirmed) Electronic ventricular pacemaker has replaced Atrial fibrillation Confirmed by LIDA SKY ([id number]) on 08/31/2017 9:44:12 PM Referred By: MIRANDA Confirmed By:LIDA SKY
--- NOTE | 2017-10-14 14:45 | EKG ---
Test Reason : Blood Pressure : / mmHG Vent. Rate : 048 BPM Atrial Rate : 061 BPM P-R Int : 000 ms QRS Dur : 102 ms QT Int : 474 ms P-R-T Axes : 000 -04 001 degrees QTc Int : 423 ms Atrial fibrillation with slow ventricular response Possible Anterior infarct , age undetermined Abnormal ECG Confirmed by DIMPLE RAMOS, MARGARITA Isbell ([id number]), editorial assistant ADILSON JOHNSON ([id number]) on 10/14/2017 2:45:20 PM Referred By: Confirmed By:MARGARITA MUSA MD
== END 2017-08-26 13:43 | disposition home or self-care (01) | DRG 242 ==
LOC: ERS 14:07 → IMCU/EMU 16:52
PROVIDERS: ADMIT Internal Medicine; ATTEND Internal Medicine
PROC: 5A09357 Assistance with Respiratory Ventilation, Less than 24 Consecutive Hours, Continuous Positive Airway Pressure (ICD-10-PCS; principal; 2017-08-19)
PROC: 0JH637Z Insertion of Cardiac Resynchronization Pacemaker Pulse Generator into Chest Subcutaneous Tissue and Fascia, Percutaneous Approach (ICD-10-PCS; 2017-08-22)
PROC: 02H63JZ Insertion of Pacemaker Lead into Right Atrium, Percutaneous Approach (ICD-10-PCS; 2017-08-22)
PROC: 02HK3JZ Insertion of Pacemaker Lead into Right Ventricle, Percutaneous Approach (ICD-10-PCS; 2017-08-22)
PROC: 02HL3JZ Insertion of Pacemaker Lead into Left Ventricle, Percutaneous Approach (ICD-10-PCS; 2017-08-22)
DX: I13.0 Hypertensive heart and chronic kidney disease with heart failure and stage 1 through stage 4 chronic kidney disease, or unspecified chronic kidney disease (principal); J96.21 Acute and chronic respiratory failure with hypoxia; G92 Toxic encephalopathy; Z99.81 Dependence on supplemental oxygen; R00.1 Bradycardia, unspecified; D62 Acute posthemorrhagic anemia; I49.5 Sick sinus syndrome; I48.2 Chronic atrial fibrillation; G40.909 Epilepsy, unspecified, not intractable, without status epilepticus; E87.5 Hyperkalemia; J96.22 Acute and chronic respiratory failure with hypercapnia; I50.33 Acute on chronic diastolic (congestive) heart failure; L76.32 Postprocedural hematoma of skin and subcutaneous tissue following other procedure; E78.5 Hyperlipidemia, unspecified; E66.9 Obesity, unspecified; M10.9 Gout, unspecified; I87.8 Other specified disorders of veins; Z79.01 Long term (current) use of anticoagulants; I25.10 Atherosclerotic heart disease of native coronary artery without angina pectoris; N18.2 Chronic kidney disease, stage 2 (mild); Z68.34 Body mass index [BMI] 34.0-34.9, adult; D53.9 Nutritional anemia, unspecified; Z87.891 Personal history of nicotine dependence; Y83.1 Surgical operation with implant of artificial internal device as the cause of abnormal reaction of the patient, or of later complication, without mention of misadventure at the time of the procedure; Y92.238 Other place in hospital as the place of occurrence of the external cause; I87.2 Venous insufficiency (chronic) (peripheral)
CPT/HCPCS: 33207; 33225; 36005; 36415; 36416; 71010; 75820; 80048; 80053; 82553; 82805; 83605; 83735; 83880; 84100; 84484; 85025; 87040; 93005; 93798; 94640; 94660; 94760; 96374; 96375; C1898; C1900; C2621; G8978-GP-CL; G8979-GP-CK; J0696; J1940; J2704; J3475; J3490; J7050; J7620

== ENCOUNTER 2017-09-06 13:34 | Outpatient (CLI) | payer MEDICARE, OTHER ==
--- NOTE | 2017-09-06 16:02 | RAD ---
TWO VIEWS CHEST: HISTORY: Dyspnea. DATE: 09/06/17. FINDINGS: Comparison is made to previous exam from 08/23/17. Two views chest demonstrate an intracardiac pacing device. Cardiomegaly is seen. Pulmonary vascular congestion is seen. Bilateral pleural effusions seen. There are areas of patchy airspace opacities in both lung bases. These have not significantly change d since the previous comparison exam and may represent pulmonary edema or bibasilar pneumonias. No s ignificant interval change is seen. IMPRESSION: Cardiomegaly, pulmonary vascular congestion, bilateral pleural effusions, and bibasilar airspace opac ities. POS: JUAQUIN
== END 2017-09-06 13:35 | disposition home or self-care (01) ==
LOC: RAD 13:34
PROVIDERS: ATTEND Internal Medicine Critical Care Medicine
DX: R06.00 Dyspnea, unspecified (principal); I51.7 Cardiomegaly; J90 Pleural effusion, not elsewhere classified; J81.1 Chronic pulmonary edema; J98.4 Other disorders of lung
CPT/HCPCS: 71020

== ENCOUNTER 2018-10-09 19:33 | Emergency (ER) | payer MEDICARE, OTHER ==
[2018-10-09 20:23] LABS: #Basophils 0.1 thou/uL (0.0-0.2); #Eosinphils 0.4 thou/uL (0.0-0.7); #Lymphocytes 1.8 thou/uL (1.20-3.40); #Neutrophils 4.4 thou/uL (1.40-6.50); %Basophils 1.5 % (0.0-1.0); %Eosinophils 4.8 % (0.0-10.0); %Monocytes 12.5 % (0.0-10.0); %Neutrophils 57.2 % (42.0-75.0); Hemoglobin 11.6 g/dL (14.0-18.0); Mean Corpuscular Hemoglobin 30.1 pg (27.0-31.0); Mean Corpuscular Volume 96.9 fL (78.0-98.0); Platelet Count 175 thou/uL (130-400); RBC Distribution Width 13.4 % (11.5-14.5); Red Blood Cell (RBC) Count 3.87 mill/uL (4.70-6.10); White Blood Cell (WBC) Count 7.6 thou/uL (4.8-10.8)
[2018-10-09 20:39] LABS: ALT (SGPT) 17 U/L (8-55); AST (SGOT) 22 U/L (5-34); Albumin 3.9 g/dL (3.4-4.8); Alkaline Phosphatase 106 U/L (40-150); Anion Gap 17 mmol/L (10-20); BUN (Urea Nitrogen) 28 mg/dL (8.4-25.7); Bilirubin, Total 0.5 mg/dL (0.2-1.2); CRP (Inflammatory) 1.04 mg/dL (= or < 0.5); Calc. Creatinine Clearance 0 mL/min (70-130); Calcium 9.3 mg/dL (7.8-10.44); Carbon Dioxide 23 mmol/L (23-31); Chloride 105 mmol/L (98-107); Estimated GFR-MDRD 61; Globulin 2.8 g/dL (2.4-3.5); Glucose 97 mg/dL (83-110); Potassium 4.5 mmol/L (3.5-5.1); Protein, Total 6.7 g/dL (5.8-8.1); Sodium 140 mmol/L (136-145)
== END 2018-10-09 21:33 | disposition home or self-care (01) ==
LOC: SCSER 19:33
DX: S80.812A Abrasion, left lower leg, initial encounter (principal); I73.9 Peripheral vascular disease, unspecified; I10 Essential (primary) hypertension; I48.91 Unspecified atrial fibrillation; E78.5 Hyperlipidemia, unspecified; Z87.891 Personal history of nicotine dependence; Z79.899 Other long term (current) drug therapy; Z79.01 Long term (current) use of anticoagulants
CPT/HCPCS: 36415; 80053; 85025; 86140